=== PATIENT | male | born 1950 | race Caucasian/White ===

== ENCOUNTER → 2016-05-08 | Outpatient (CLI) | payer MEDICARE | END | disposition home or self-care (01) | LOC: GMAB 14:08 | PROVIDERS: ATTEND Family Medicine | DX: Z79.899 Other long term (current) drug therapy (principal); J30.9 Allergic rhinitis, unspecified ==

== ENCOUNTER → 2016-05-26 | Outpatient (CLI) | payer MEDICARE, OTHER ==
--- NOTE | 2016-05-26 08:33 | RAD ---
EXAM DESCRIPTION: Knee,Right Complete CLINICAL HISTORY: KNEE PAIN COMPARISON: None. TECHNIQUE: 4 views FINDINGS: Marked loss of medial joint space is observed. Sclerosis of the articular surfaces are observed in the medial joint compartment. Medial femoral osteophyte formation is observed. Marked patellofemoral joint arthritis is observed. A small joint effusion is evident. Mild degenerative changes are observed in the lateral joint compartment. 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 Electronically signed by: Matt Hidalgo MD 05/26/2016 8:32 AM CDT
--- NOTE | 2016-05-26 08:34 | RAD ---
EXAM DESCRIPTION: Pelvis CLINICAL HISTORY: HIP PAIN COMPARISON: None. TECHNIQUE: AP pelvis FINDINGS: Fusion cages are observed at the L4-5 and L5-S1 levels in the lumbar spine. There is loss of disc height in the left hip. Some acetabular osteophyte formation is observed in the right hip. No fracturing is detected. Vascular calcification is observed in the pelvis. IMPRESSION: Degenerative changes are observed in both hips more pronounced on the left. Electronically signed by: Matt Hidalgo MD 05/26/2016 8:33 AM CDT
== END | disposition home or self-care (01) ==
LOC: RAD 07:59
PROVIDERS: ATTEND Orthopaedic Surgery
DX: M25.561 Pain in right knee (principal); M25.551 Pain in right hip

== ENCOUNTER → 2016-05-30 | Outpatient (CLI) | payer MEDICARE, OTHER ==
--- NOTE | 2016-05-31 06:27 | RAD ---
Procedure: XR SHOULDER 2 OR MORE VIEWS Exam Date: 05/30/2016 12:00 AM CDT Ordering Provider: JEET MCBRIDE Clinical Indication: SHOULDER PAIN Comparison: None FINDINGS: There is no fracture or dislocation. The subacromial space is preserved. The acromioclavicular joint has a normal appearance. The glenohumeral joint has a normal appearance. No lytic or sclerotic lesions. IMPRESSION: 1. Unremarkable exam of the right shoulder. Electronically signed by: Sloan Wood MD 05/31/2016 6:26 AM CDT
--- NOTE | 2016-05-31 06:38 | RAD ---
Procedure: XR SHOULDER 2 OR MORE VIEWS Exam Date: 05/30/2016 12:00 AM CDT Ordering Provider: JEET MCBRIDE Clinical Indication: SHOULDER PAIN Comparison: None FINDINGS: There is no fracture or dislocation. The subacromial space is preserved. The acromioclavicular joint has a normal appearance. The glenohumeral joint has a normal appearance. No lytic or sclerotic lesions. IMPRESSION: 1. Nonacute exam of the left shoulder. Electronically signed by: Sloan Wood MD 05/31/2016 6:37 AM CDT
== END | disposition home or self-care (01) ==
LOC: RAD 08:21
PROVIDERS: ATTEND Orthopaedic Surgery
DX: M25.512 Pain in left shoulder (principal)

== ENCOUNTER → 2017-04-22 | Outpatient (CLI) | payer MEDICARE, OTHER ==
--- NOTE | 2017-04-22 10:31 | CT ---
EXAM DESCRIPTION: Chest w/o Contrast CLINICAL HISTORY: 66 years, Male, COUGH COMPARISON: None TECHNIQUE: Thin-section noncontrast axial CT images are obtained according to our protocol. Reconstructed MPR images are created and reviewed as well. FINDINGS: Subpleural emphysematous and fibrotic changes are seen in the right lung base with linear scar in the inferior lingula and in the medial right middle lobe. In the anterior and apical upper lobes, moderately severe emphysematous changes are seen which are paraseptal and centrilobular in location. Subpleural blebs are seen in the anterior upper lobes bilaterally. No pneumothorax. No worrisome pulmonary nodule or mass. No acute-appearing consolidation of either lung. Heart size is normal. No pericardial effusion. No mediastinal or hilar mass or adenopathy. There is coronary calcification. In the upper abdomen, tiny 2 mm calculus is seen in the posterior upper calyx of the left kidney. Upper poles of kidneys, adrenal glands, upper portions of liver, spleen, gallbladder and pancreas are otherwise unremarkable. Normal appearance of the stomach and bowel loops in the upper most abdomen. No focal lesion of liver or spleen. No chest wall mass. No axillary, lower cervical or supraclavicular adenopathy. Calcifications in the thyroid gland are noted. Coronal and sagittal reformatted images are evaluated. Ascending aorta is mildly prominent measuring 3.7 cm in diameter. No significant pulmonary arterial enlargement. No aortic aneurysm or displaced arteriosclerotic calcifications to suggest dissection. IMPRESSION: Scattered emphysematous and fibrotic changes in the lungs as described. Prominent subpleural blebs in the anterior upper lobes bilaterally. This exam was performed according to our departmental dose-optimization program, which includes automated exposure control, adjustment of the mA and/or kV according to patient size and/or use of iterative reconstruction technique. Total DLP equals 375.36 mGycm. Electronically signed by: Lucio Walker MD 04/22/2017 10:31 AM [employer]
== END ==
LOC: CT 08:00
PROVIDERS: ATTEND Family Medicine
DX: R05 Cough (principal)

== ENCOUNTER 2020-01-17 16:14 | Inpatient (IN) | payer MEDICARE, OTHER ==
--- NOTE | 2020-01-17 17:43 | RAD ---
EXAM DESCRIPTION: Chest,1 View CLINICAL HISTORY: Decrease oxygen sats,COVID + COMPARISON: Chest CT dated April 22, 2017 TECHNIQUE: One view radiograph of the chest FINDINGS: Cardiac silhouette shows normal heart size. Pulmonary vascularity is within normal limits. Subtle alveolar opacities of the bilateral lower lung zones. Suspect trace right-sided pleural effusion. No pneumothorax. Postsurgical changes of reverse total shoulder arthroplasty bilaterally. IMPRESSION: Subtle alveolar opacities bilateral lower lung zones compatible with infectious/inflammatory processes such as pneumonia (including COVID 19 pneumonia). Recommend follow-up chest radiograph to resolution. Electronically signed by: Matt Molina MD 01/17/2020 5:42 PM [employer]
--- NOTE | 2020-01-17 18:44 | ED.PDOC ---
History of Present Illness - General Chief Complaint: Fever Stated Complaint: +COVID,fever,chills Time Seen by Provider: 01/17/20 17:03 Source: patient, family Exam Limitations: no limitations - History of Present Illness Initial Comments: 10 FEELING ILL, ANOREXIA X 7 D. COVID POS DX'D ON . DR. DECKER TELEHEALTHED TODAY AND SENT OVER FOR FURTHER EVALUATION. IMMUNE SUPPRESSED (ON RITUXAN, PLAQUENIL, ARAVA FOR SEVERE R.A.) THUS MORE SUSCEPTIBLE TO COVID DETERIORATION. TODAY IS WEAK, FEVERS TO 104.0, COUGH. NO SOB. Timing/Duration: getting worse Severity: moderate Improving Factors: nothing Worsening Factors: nothing Associated Symptoms: cough, fever/chills, loss of appetite, weakness Allergies/Adverse Reactions: Allergies Codeine Allergy (Verified 01/17/20 20:39) Latex Allergy (Verified 01/17/20 20:39) Morphine Allergy (Verified 01/17/20 20:39) Home Medications: Ambulatory Orders BuPROPion XL [Wellbutrin XL] 150 mg PO DAILY 01/17/20 Diazepam [Valium] 10 mg PO Q6H 01/17/20 Docusate Sodium [Colace Cap] 100 mg PO Q6HR 01/17/20 Finasteride 5 mg PO DAILY 01/17/20 HYDROcodone 10MG/APAP 325MG [[place] 10/325] 1 ea PO Q6H 01/17/20 Hydroxychloroquine Sulfate [Plaquenil] 200 mg PO BID 01/17/20 Leflunomide [Arava] 20 mg PO DAILY 01/17/20 Lisinopril 40 mg PO DAILY 01/17/20 Methadone HCl [Methadone] 10 mg PO Q6H 01/17/20 Methylphenidate HCl [Ritalin] 20 mg PO BID 01/17/20 Rituxan Hycela 1400-87105 mg -Ut/11.7ML .[id number] 01/17/20 Review of Systems - Review of Systems Constitutional: States: chills, fever, malaise, weakness EENTM: Denies: ear pain, nose congestion, throat pain Respiratory: States: cough. Denies: short of breath, wheezing Cardiology: Denies: chest pain, palpitations Gastrointestinal/Abdominal: Denies: abdominal pain, nausea Genitourinary: Denies: dysuria, frequency Musculoskeletal: States: joint pain - R.A. . Denies: neck pain Skin: Denies: lesions, rash Neurological: Denies: headache, paresthesia Endocrine: Denies: intolerance to cold, intolerance to heat Hematologic/Lymphatic: Denies: easy bleeding, easy bruising All other Systems: Reviewed and Negative Past Medical History (General) - Patient Medical History Hx Stroke: No Hx Congestive Heart Failure: No Hx Diabetes: No - Vaccination History Hx Influenza Vaccination: No Hx Pneumococcal Vaccination: No - Social History Hx Tobacco Use: No Family Medical History - Family History Father Family History: Unknown Living Status: Unknown Mother Family History: Unknown Living Status: Physical Exam - Physical Exam General Appearance: Alert, Ill Appearing Eye Exam: bilateral normal Ears, Nose, Throat: hearing grossly normal, normal ENT inspection Neck: non-tender, full range of motion, supple Respiratory: lungs clear, normal breath sounds, no respiratory distress, no accessory muscle use Cardiovascular/Chest: no edema, no gallop, no JVD, no murmur, tachycardia - REG RHYTHM. Peripheral Pulses: radial,right: 1+, radial,left: 1+ Gastrointestinal/Abdominal: non tender, soft Rectal Exam: deferred Back Exam: no CVA tenderness, no vertebral tenderness Extremity: normal range of motion, normal inspection Neurologic: no motor/sensory deficits, alert, oriented x 3 Skin Exam: normal color, warm/dry Lymphatic: no adenopathy Progress - Results/Orders Results/Orders: COVID POS PER O/S LAB. CXR AND CHEST CT = COVID PNE (BL OPACITIES) CBC WBC NL. CMP NA 133, K+ 3.3 = STARTED IVF NS W/ 20 KCl. ELEVATED COVID MARKERS: CRP, LDH, FIBRINOGEN, FERERITIN, D-DIMER (CAME BACK 5,[address] CHEST W/ CONTRAST OBTAINED, THUS I CANNOT ORDER CT TO R/O PE TONIGHT. IT CAN BE ORDERED TOMORROW.) LABS UNREMARKABLE OR WNL: MAG, CPK, PTT, TROP, BNP. ADMISSION LABS ORDERED BUT STILL PENDING UPON ADMISSION: BCX, SPUTUM CX, RESP 2 PANEL. ORDERED ROCEPHIN, AZITHROMYCIN, REMDESIVIR, DECADRON. ADMITTING FOR COVID, HYPOXIA REQUIRING 02 THERAPY (86% RA, 92% 2L NC), AND ON IMMUNE SUPPRESSANTS FOR R.A. [facility] ROSALES ACCEPTED ADMISSION. THANK YOU, [facility] AND [facility], FOR ACCEPTING FURTHER CARE OF OUR MUTUAL PATIENT. Departure - Departure Clinical Impression: Pneumonia due to COVID-19 virus, Hypoxia, Hyponatremia, Hypokalemia, Elevated LDH, CRP elevated, D-dimer, elevated, Elevated ferritin Disposition: Admit Patient Condition: Good Home Medications: Ambulatory Orders BuPROPion XL [Wellbutrin XL] 150 mg PO DAILY 01/17/20 Diazepam [Valium] 10 mg PO Q6H 01/17/20 Docusate Sodium [Colace Cap] 100 mg PO Q6HR 01/17/20 Finasteride 5 mg PO DAILY 01/17/20 HYDROcodone 10MG/APAP 325MG [[place] 10325] 1 ea PO Q6H 01/17/20 Hydroxychloroquine Sulfate [Plaquenil] 200 mg PO BID 01/17/20 Leflunomide [Arava] 20 mg PO DAILY 01/17/20 Lisinopril 40 mg PO DAILY 01/17/20 Methadone HCl [Methadone] 10 mg PO Q6H 01/17/20 Methylphenidate HCl [Ritalin] 20 mg PO BID 01/17/20 Rituxan Hycela 1400-54572 mg -Ut/11.7ML .[id number] 01/17/20 Decision To Admit - Decistion To Admit Decision to Admit Reason: Admit from ER Decision to Admit Date: 01/17/20 Decision to Admit Time: 21:30
[2020-01-17] MEDS ORDERED: cefTRIAXone SODIUM 1 GM VIAL IM ONE (18:46)
[2020-01-17] MEDS ORDERED: AZITHROMYCIN IV 500 MG in SODIUM CHLORIDE 0.9% 250ML 250 ML IVPB ONE (18:46)
[2020-01-17] MEDS ORDERED: DEXAMETHASONE INJ 10 MG/ML VIAL IV ONE (18:47)
[2020-01-17] MEDS ORDERED: REMDESIVIR 200 MG in SODIUM CHLORIDE 0.9% 250ML 250 ML IVPB ONE (18:47)
[2020-01-17] MEDS ORDERED: LIDOCAINE 1% 2 ML VIAL INJ ONE (18:53)
--- NOTE | 2020-01-17 19:39 | CT ---
CT CHEST WITH IV CONTRAST HISTORY: Covid, Hypoxia, Cough.. COMPARISON: 04/22/2017 TECHNIQUE: CT scan of the chest was performed with IV contrast. This exam was performed according to our departmental dose-optimization program, which includes automated exposure control, adjustment of the mA and/or kV according to patient size and/or use of iterative reconstruction technique. FINDINGS: There are multiple patchy groundglass opacities scattered throughout both lungs in a predominantly peripheral distribution. No pleural effusions or pneumothorax. There are scattered emphysematous changes in both lungs. The heart size is normal without pericardial effusion. There is mild bilateral hilar adenopathy and small mediastinal lymph nodes, likely reactive. The visualized portions of the upper abdomen are unremarkable. There are bilateral shoulder arthroplasties. IMPRESSION: Commonly reported imaging features of COVID-19 pneumonia are present. Other processes such as influenza pneumonia and organizing pneumonia, as can be seen with drug toxicity and connective tissue disease, can cause a similar imaging pattern. [PneTyp] Reference: https://pubs.rsna.org/doi/full/10.1148/ryct.6502787060 Electronically signed by: Anselmo Matta MD 01/17/2020 7:38 PM [employer] INSPECTOR REPAIRER
[2020-01-17] MEDS ORDERED: SODIUM CHLORIDE 0.9% (FLUSH) 10 ML SYG IV PRN (20:04)
[2020-01-17] MEDS ORDERED: POTASSIUM CHLORIDE 20 MEQ TAB PO ONE (20:13)
--- NOTE | 2020-01-17 20:24 | HP ---
SUPERVISING PHYSICIAN: Dru Garcia MD CHIEF COMPLAINT: Fever. HISTORY OF PRESENT ILLNESS: This is a 69-year-old male patient who was diagnosed with COVID pneumonitis as an outpatient and then he was noted to be hypoxic and was sent to the Emergency Room. He was evaluated in the ER with O2 saturation of 86% on room air. He was placed on 2 liters via nasal cannula and his O2 saturation increased to 94%. He is alert and oriented, in no distress, but hypoxic. He noted fever and chills associated with COVID as well. Lab work was done in the ER and showed white count 6.8, hemoglobin 11.5, but he did have a left shift of 92.5. D-dimer was greater than 5,000. CRP was 13.3. Sodium 133, potassium 3.3. Transaminases were mildly elevated, AST 90, ALT 88. Chest x-ray as well as CT of the chest showed bilateral patchy infiltrates consistent with COVID pneumonitis. Due to the hypoxia, the patient was referred for admission. At time of examination, the patient is alert and oriented and in no distress. PAST MEDICAL HISTORY: 1. Hypertension. 2. Chronic pain syndrome. 3. Rheumatoid arthritis. PAST SURGICAL HISTORY: 1. Extensive back surgery. 2. Knee surgeries. MEDICATIONS: Please see medication reconciliation list once verified in the computer. ALLERGIES: CODEINE, LATEX, MORPHINE. FAMILY HISTORY: Reviewed and noncontributory. SOCIAL HISTORY: No smoking, no illicit drugs. He does drink beer on occasion. REVIEW OF SYSTEMS: CONSTITUTIONAL: Positive for fever and chills. No recent weight loss or weight gain. HEENT: Positive for nasal drainage. No sore throat. RESPIRATORY: Positive for shortness of breath with exertion. Positive for cough. No hemoptysis or pleuritic chest pain. CARDIOVASCULAR: No chest pain, palpitations or peripheral edema. GASTROINTESTINAL: No nausea, vomiting, diarrhea, constipation or abdominal pain. GENITOURINARY: No dysuria, frequency or flank pain. ENDOCRINE: No polydipsia, polyuria or polyphagia. No heat or cold intolerance. MUSCULOSKELETAL: No joint pain, joint swelling or muscle cramps. NEUROLOGIC: No syncope, paresthesias or seizures. PHYSICAL EXAMINATION: VITAL SIGNS: Blood pressure 129/74, heart rate 98, respiratory rate 1,8 temperature 98.8, oxygen saturation 93% on 3 liters via nasal cannula. GENERAL: Mr. Hdez is a 69-year-old male patient who is in no active distress. NEUROLOGIC: The patient is alert. LUNGS: Diminished with bibasilar rales. No wheezing. CARDIOVASCULAR: Regular rate and rhythm. Normal S1, S2. ABDOMEN: Soft. Positive bowel sounds. EXTREMITIES: Right lower extremity with no edema. Pulses 2+. Capillary refill is less than 2 seconds. Left [id number]-kvgl-twejosinkn noted. LABORATORY: Labs and films are as discussed in history of present illness. IMPRESSION: 1. Acute hypoxemic respiratory failure. 2. COVID pneumonitis. 3. Hypertension. 4. Chronic pain syndrome. 5. History of rheumatoid arthritis on immunosuppressant medication. PLAN: The patient will be admitted to the hospital with empiric antibiotics with Rocephin and azithromycin as well as dexamethasone and Remdesivir. I have placed him on scheduled bronchodilator therapy as well as Mucinex. We will repeat serial labs and x-rays as needed. We will restart his home medications once verified in the computer. [facility][id number] [facility]
[2020-01-17] MEDS ORDERED: ENOXAPARIN SODIUM 60 MG/0.6 ML SYG SUBCU ONE (22:09)
[2020-01-17] MEDS ORDERED: diazePAM 5 MG TAB ONE (22:09)
[2020-01-17] MEDS: NON-FORMULARY MEDICATION 1 EA MIS (Diazepam [Valium] 10 MG) PO SCH (22:13)
[2020-01-17] MEDS: guaiFENesin ER TAB 600 MG TAB PO SCH (22:13)
[2020-01-17] MEDS: HYDROcodone 10MG/APAP 325MG 1 EA TAB PO SCH (22:14)
[2020-01-17] MEDS: METHADONE HCL 10 MG TAB PO SCH (22:14)
[2020-01-17] MEDS: IV SET AND CAP CHANGE INJ INJ SCH (22:15)
[2020-01-17] MEDS: KCL 20 MEQ/NS 1,000 ML IVS PRN (22:16)
[2020-01-17] MEDS ORDERED: DOCUSATE SODIUM 100 MG CAP PO SCH (22:50)
[2020-01-17] MEDS: NON-FORMULARY MEDICATION 1 EA MIS (Hydroxychloroquine Sulfate [Plaquenil] 200 MG) PO SCH (22:51)
[2020-01-18] MEDS ORDERED: DOCUSATE SODIUM 100 MG CAP PO SCH
[2020-01-18] MEDS ORDERED: diazePAM 5 MG TAB ONE ×2 (03:07→08:56)
[2020-01-18] MEDS: DOCUSATE SODIUM 100 MG CAP PO SCH ×4 (03:51→21:10)
[2020-01-18] MEDS: NON-FORMULARY MEDICATION 1 EA MIS (Diazepam [Valium] 10 MG) PO SCH ×2 (03:59→09:11)
[2020-01-18] MEDS: HYDROcodone 10MG/APAP 325MG 1 EA TAB PO SCH ×4 (04:00→21:14)
[2020-01-18] MEDS: METHADONE HCL 10 MG TAB PO SCH ×4 (04:00→21:14)
[2020-01-18] MEDS: KCL 20 MEQ/NS 1,000 ML IVS PRN (06:14)
[2020-01-18] MEDS ORDERED: DEXAMETHASONE INJ 10 MG/ML VIAL ONE (08:00)
[2020-01-18] MEDS ORDERED: ENOXAPARIN SODIUM 60 MG/0.6 ML SYG SUBCU ONE ×2 (08:00→19:25)
[2020-01-18] MEDS ORDERED: LISINOPRIL 10 MG TAB ONE (08:01)
[2020-01-18] MEDS: LISINOPRIL 10 MG TAB PO SCH (09:05)
[2020-01-18] MEDS: guaiFENesin ER TAB 600 MG TAB PO SCH ×2 (09:05→21:14)
[2020-01-18] MEDS: Wellbutrin XL 150 MG TAB PO SCH (09:05)
[2020-01-18] MEDS: FINASTERIDE 5 MG TAB PO SCH (09:05)
[2020-01-18] MEDS: DEXAMETHASONE INJ 4 MG/ML VIAL IV SCH ×2 (09:09→21:10)
[2020-01-18] MEDS: ALBUTEROL INHALER 64 PUFF/8GM INH SCH ×4 (09:15→20:50)
--- NOTE | 2020-01-18 10:58 | PN ---
SUPERVISING PHYSICIAN: Dru Garcia MD DATE: 01/18/20 SUBJECTIVE: The patient feels fine today. He does not complain of any shortness of breath or cough. He actually states he wants to go home. OBJECTIVE: VITAL SIGNS: Blood pressure 134/75, heart rate 69, respiratory rate 18, temperature 98.4, oxygen saturation 93% on 3 liters via nasal cannula. GENERAL: Mr. Hagen is a 69-year-old male patient who is in no active distress. NEUROLOGIC: The patient is alert. LUNGS: Diminished, but otherwise clear. CARDIOVASCULAR: Regular rate and rhythm. Normal S1, S2. ABDOMEN: Soft. Positive bowel sounds. EXTREMITIES: Lower extremities with no edema on the right, left [id number]. LABORATORY: White count 4.0, hemoglobin 11.1, platelet count 373. Coagulation studies with D-dimer 3280. Chemistry with sodium 141, potassium 5.1, chloride 104, CO2 28, BUN 13, creatinine 0.60, glucose 135, calcium 7.4. AST improved to 76 and ALT improved to 81. CRP 13.8. ASSESSMENT: 1. Acute hypoxemic respiratory failure. 2. COVID pneumonitis. 3. Hypertension. 4. Chronic pain syndrome. 5. History of rheumatoid arthritis on immunosuppressive medication. PLAN: The patient is in no distress, tolerating 3 liters of oxygen fairly well. He has not required an increase in oxygen supply at this time. We will continue Remdesivir, dexamethasone as well as empiric antibiotics. We will continue the bronchodilator and Mucinex as well. I will repeat his labs and chest x-ray tomorrow. He does want to go home, but at this point requiring oxygen I would encourage him to stay for further therapy. [facility][id number] [facility]
[2020-01-18] MEDS: NON-FORMULARY MEDICATION 1 EA MIS (Leflunomide [Arava] 20 MG) PO SCH (12:14)
[2020-01-18] MEDS: NON-FORMULARY MEDICATION 1 EA MIS (Hydroxychloroquine Sulfate [Plaquenil] 200 MG) PO SCH ×2 (14:49→21:12)
[2020-01-18] MEDS: METHYLPHENIDATE HCL 20 MG PO SCH ×2 (14:49→21:13)
[2020-01-18] MEDS: diazePAM 5 MG TAB PO SCH ×2 (14:50→21:14)
[2020-01-18] MEDS: REMDESIVIR 100 MG in SODIUM CHLORIDE 0.9% 250ML 250 ML IVPB SCH (17:31)
[2020-01-18] MEDS ORDERED: AZITHROMYCIN IV 500 MG VIAL IVPB ONE (19:25)
[2020-01-18] MEDS ORDERED: SODIUM CHLORIDE 0.9% 250ML 250 ML ONE (19:25)
[2020-01-18] MEDS: cefTRIAXone SODIUM 1 GM in SODIUM CHL 0.9% 50ML MIN-BAG+ 50 ML IVPB SCH (19:54)
[2020-01-18] MEDS: AZITHROMYCIN IV 500 MG in SODIUM CHLORIDE 0.9% 250ML 250 ML IVPB SCH (20:30)
[2020-01-19] MEDS: DOCUSATE SODIUM 100 MG CAP PO SCH ×4 (03:05→20:19)
[2020-01-19] MEDS: diazePAM 5 MG TAB PO SCH ×4 (03:05→20:20)
[2020-01-19] MEDS: METHADONE HCL 10 MG TAB PO SCH ×4 (03:05→21:23)
[2020-01-19] MEDS: HYDROcodone 10MG/APAP 325MG 1 EA TAB PO SCH ×4 (03:06→21:23)
[2020-01-19] MEDS: REMDESIVIR 100 MG in SODIUM CHLORIDE 0.9% 250ML 250 ML IVPB SCH (07:59)
--- NOTE | 2020-01-19 07:59 | RAD ---
EXAM: XR Chest, 1 View CLINICAL HISTORY: The patient is 69 years old and is Male; covid-19 TECHNIQUE: Frontal view of the chest. COMPARISON: Chest x-ray 01/17/2020. FINDINGS: Lungs: Diffuse patchy airspace disease in the mid to lower lungs bilaterally. Pleural space: Blunting of the right costophrenic angle which can represent pleural effusion. No pneumothorax. Heart: Unremarkable. No cardiomegaly. Mediastinum: Unremarkable. Bones/joints: Unremarkable. IMPRESSION: 1. Diffuse patchy airspace disease in the mid to lower lungs bilaterally. 2. Blunting of the right costophrenic angle which can represent pleural effusion. Electronically signed by: Mark Qureshi MD 01/19/2020 7:58 AM [employer]ILRO[employer] MAINTENANCE CLERK
[2020-01-19] MEDS: guaiFENesin ER TAB 600 MG TAB PO SCH ×2 (08:01→20:19)
[2020-01-19] MEDS: FINASTERIDE 5 MG TAB PO SCH (08:01)
[2020-01-19] MEDS: Wellbutrin XL 150 MG TAB PO SCH (08:02)
[2020-01-19] MEDS: LISINOPRIL 10 MG TAB PO SCH (08:02)
[2020-01-19] MEDS: DEXAMETHASONE INJ 4 MG/ML VIAL IV SCH (08:03)
[2020-01-19] MEDS: NON-FORMULARY MEDICATION 1 EA MIS (Hydroxychloroquine Sulfate [Plaquenil] 200 MG) PO SCH ×2 (08:06→20:20)
[2020-01-19] MEDS: METHYLPHENIDATE HCL 20 MG PO SCH ×2 (08:06→20:20)
[2020-01-19] MEDS: NON-FORMULARY MEDICATION 1 EA MIS (Leflunomide [Arava] 20 MG) PO SCH (08:08)
[2020-01-19] MEDS ORDERED: ENOXAPARIN SODIUM 60 MG/0.6 ML SYG SUBCU ONE (08:09)
[2020-01-19] MEDS: ALBUTEROL INHALER 64 PUFF/8GM INH SCH ×4 (08:20→21:00)
[2020-01-19] MEDS ORDERED: ALBUTEROL INHALER 64 PUFF/8GM INH PRN (15:59)
[2020-01-19] MEDS: cefTRIAXone SODIUM 1 GM in SODIUM CHL 0.9% 50ML MIN-BAG+ 50 ML IVPB SCH (19:27)
[2020-01-19] MEDS: AZITHROMYCIN IV 500 MG in SODIUM CHLORIDE 0.9% 250ML 250 ML IVPB SCH (20:14)
[2020-01-19] MEDS: ENOXAPARIN SODIUM 60 MG/0.6 ML SYG SUBCU SCH (20:21)
[2020-01-19] MEDS: DEXAMETHASONE INJ 10 MG/ML VIAL IV SCH (20:21)
[2020-01-20] MEDS: HYDROcodone 10MG/APAP 325MG 1 EA TAB PO SCH ×4 (03:03→21:02)
[2020-01-20] MEDS: METHADONE HCL 10 MG TAB PO SCH ×4 (03:03→21:02)
[2020-01-20] MEDS: DOCUSATE SODIUM 100 MG CAP PO SCH ×4 (03:03→20:32)
[2020-01-20] MEDS: diazePAM 5 MG TAB PO SCH ×4 (03:04→20:32)
[2020-01-20] MEDS: PANTOPRAZOLE SODIUM TAB 40 MG PO SCH (05:54)
--- NOTE | 2020-01-20 06:26 | RAD ---
EXAM: XR Chest, 1 View CLINICAL HISTORY: The patient is 69 years old and is Male; covid TECHNIQUE: Frontal view of the chest. COMPARISON: Chest x-ray 01/19/2020 FINDINGS: Lungs: Diffuse patchy airspace disease in the mid to lower lungs bilaterally, similar to the prior exam. Pleural space: Blunting of the right costophrenic angle again suggestive of a pleural effusion. No pneumothorax. Heart: Unremarkable. No cardiomegaly. Mediastinum: Unremarkable. Bones/joints: Bilateral shoulder arthroplasty. IMPRESSION: 1. Diffuse patchy airspace disease in the mid to lower lungs bilaterally, similar to the prior exam. 2. Similar-appearing right pleural effusion. Electronically signed by: Mark Qureshi MD 01/20/2020 6:24 AM [employer]
[2020-01-20] MEDS ORDERED: PANTOPRAZOLE SODIUM IV 40 MG VIAL IV SCH (06:30)
[2020-01-20] MEDS ORDERED: BIFIDOBACTERIUM INFANTIS 4 MG CAP ONE (06:58)
[2020-01-20] MEDS: Wellbutrin XL 150 MG TAB PO SCH (08:09)
[2020-01-20] MEDS: REMDESIVIR 100 MG in SODIUM CHLORIDE 0.9% 250ML 250 ML IVPB SCH (08:09)
[2020-01-20] MEDS: DEXAMETHASONE INJ 10 MG/ML VIAL IV SCH ×2 (08:09→20:31)
[2020-01-20] MEDS: ENOXAPARIN SODIUM 60 MG/0.6 ML SYG SUBCU SCH ×2 (08:09→20:31)
[2020-01-20] MEDS: BIFIDOBACTERIUM INFANTIS 4 MG CAP PO SCH (08:10)
[2020-01-20] MEDS: NON-FORMULARY MEDICATION 1 EA MIS (Leflunomide [Arava] 20 MG) PO SCH (08:10)
[2020-01-20] MEDS: LISINOPRIL 10 MG TAB PO SCH (08:10)
[2020-01-20] MEDS: FINASTERIDE 5 MG TAB PO SCH (08:10)
[2020-01-20] MEDS: NON-FORMULARY MEDICATION 1 EA MIS (Hydroxychloroquine Sulfate [Plaquenil] 200 MG) PO SCH ×2 (08:10→20:31)
--- NOTE | 2020-01-20 08:10 | PN ---
SUPERVISING PHYSICIAN: Dru Garcia MD DATE: 01/19/20 SUBJECTIVE: The patient is sitting up in bed. He is still requiring oxygen and is unable to go without a lower setting. He would like to go home, but we had a long discussion about relapsing and coming back to the hospital. He denies chest pain, nausea or vomiting. OBJECTIVE: VITAL SIGNS: Temperature 97.7, heart rate 100, blood pressure 143/79, respiratory rate 18, O2 saturation 92% on 2.5 liters nasal cannula. RESPIRATORY: A few scattered rhonchi, but otherwise clear to auscultation. CARDIAC: Regular rate and rhythm. At times, he is slightly tachycardic. NEUROLOGIC: Awake, alert and oriented times three. LABORATORY: WBCs 8,700, hemoglobin 11, hematocrit 33.4. He has a left shift on his differential. D-dimer 2,660. Electrolytes are basically within normal limits with the exception of his calcium is slightly low at 7.5. AST 71, ALT 77. CRP 7.8. MICROBIOLOGY: Preliminary blood cultures show no growth after 48 hours. RADIOLOGY: Chest x-ray shows 1) Diffuse patchy airspace disease in the mid to lower lungs bilaterally. 2) Blunting of the right costophrenic angle which can represent pleural effusion. All other labs and films have been reviewed via the EMR. ASSESSMENT: 1. Acute hypoxemic respiratory failure. 2. COVID pneumonitis. 3. Hypertension. 4. Chronic pain syndrome. 5. History of rheumatoid arthritis on immunosuppressive medication. PLAN: We will continue present supportive care including continuing to titrate off his oxygen. If his lab continues to improve, hopefully he can be discharged tomorrow although he may have to go home on home oxygen. I have ordered lab and chest x-ray tomorrow and added Protonix and Align to his medications. [facility][id number] [facility]
[2020-01-20] MEDS: guaiFENesin ER TAB 600 MG TAB PO SCH ×2 (08:11→20:32)
[2020-01-20] MEDS: ALBUTEROL INHALER 64 PUFF/8GM INH SCH ×2 (08:33→15:14)
[2020-01-20] MEDS: METHYLPHENIDATE HCL 20 MG PO SCH ×2 (08:34→20:30)
[2020-01-20] MEDS ORDERED: ALBUTEROL SULFATE 2.5 MG/3 ML VIAL NEB PRN (14:23)
[2020-01-20] MEDS: IPRATROPIUM/ALBUTEROL 3 ML VIAL NEB SCH ×2 (17:30→20:55)
--- NOTE | 2020-01-20 19:06 | PN ---
SUPERVISING PHYSICIAN: Dru Garcia MD DATE: 01/20/20 SUBJECTIVE: The patient is sitting up in bed. We discussed his plan of care and discharge. He voiced understanding after we discussed his increasing oxygen demand and that it would not be safe for him to go home. He denies nausea or vomiting or chest pain. OBJECTIVE: VITAL SIGNS: Temperature 97.4, heart rate 82, blood pressure 133/68, respiratory rate 22, O2 saturation 92% on 5 to 6 liters per minute nasal cannula. RESPIRATORY: Diminished breath sounds throughout. CARDIAC: Regular rate and rhythm. NEUROLOGIC: Awake, alert and oriented times three. LABORATORY: WBCs 9.7, hemoglobin 10.9, hematocrit 33.1. He has a left shift on his differential. Fibrinogen is 578. D-dimer 1,770. Electrolytes are basically within normal limits with the exception of his calcium is low at 7. AST 69, ALT 81, alkaline phosphatase 128. LD is 335. C-reactive protein is 6. MICROBIOLOGY: Preliminary blood cultures show no growth after 48 hours. RADIOLOGY: Chest x-ray shows 1) Diffuse patchy airspace disease in the mid to lower lungs bilaterally similar to the prior exam. 2) Similar appearing right pleural effusion. ASSESSMENT: 1. Acute hypoxemic respiratory failure. 2. COVID pneumonitis. 3. Hypertension. 4. Chronic pain syndrome. 5. History of rheumatoid arthritis on immunosuppressive medication. PLAN: We will continue present supportive care. The patient understands that his oxygen demand is increasing and that it would be unsafe to go home. He may have to go on high flow oxygen if he continues to have low saturations. I have changed his albuterol inhaler to Duoneb, scheduled and albuterol nebs p.r.n.. Encouraged good pulmonary hygiene. I have ordered routine Covid lab for in the morning. I will hold on chest x-ray for now. [facility][id number] [facility]
[2020-01-20] MEDS: cefTRIAXone SODIUM 1 GM in SODIUM CHL 0.9% 50ML MIN-BAG+ 50 ML IVPB SCH (19:39)
[2020-01-20] MEDS: AZITHROMYCIN IV 500 MG in SODIUM CHLORIDE 0.9% 250ML 250 ML IVPB SCH (20:33)
[2020-01-20] MEDS: IV SET AND CAP CHANGE INJ INJ SCH (20:43)
[2020-01-21] MEDS: DOCUSATE SODIUM 100 MG CAP PO SCH ×4 (02:58→20:06)
[2020-01-21] MEDS: diazePAM 5 MG TAB PO SCH ×4 (02:58→20:06)
[2020-01-21] MEDS: METHADONE HCL 10 MG TAB PO SCH ×4 (02:58→21:28)
[2020-01-21] MEDS: HYDROcodone 10MG/APAP 325MG 1 EA TAB PO SCH ×4 (02:58→21:27)
[2020-01-21] MEDS: PANTOPRAZOLE SODIUM TAB 40 MG PO SCH (06:09)
[2020-01-21] MEDS: FINASTERIDE 5 MG TAB PO SCH (09:14)
[2020-01-21] MEDS: Wellbutrin XL 150 MG TAB PO SCH (09:14)
[2020-01-21] MEDS: DEXAMETHASONE INJ 10 MG/ML VIAL IV SCH ×2 (09:15→20:05)
[2020-01-21] MEDS: BIFIDOBACTERIUM INFANTIS 4 MG CAP PO SCH (09:15)
[2020-01-21] MEDS: LISINOPRIL 10 MG TAB PO SCH (09:15)
[2020-01-21] MEDS: guaiFENesin ER TAB 600 MG TAB PO SCH ×2 (09:16→20:07)
[2020-01-21] MEDS: REMDESIVIR 100 MG in SODIUM CHLORIDE 0.9% 250ML 250 ML IVPB SCH (09:16)
[2020-01-21] MEDS: NON-FORMULARY MEDICATION 1 EA MIS (Hydroxychloroquine Sulfate [Plaquenil] 200 MG) PO SCH ×2 (09:16→20:04)
[2020-01-21] MEDS: METHYLPHENIDATE HCL 20 MG PO SCH ×2 (09:16→20:05)
[2020-01-21] MEDS: ENOXAPARIN SODIUM 60 MG/0.6 ML SYG SUBCU SCH ×2 (09:16→20:05)
[2020-01-21] MEDS: NON-FORMULARY MEDICATION 1 EA MIS (Leflunomide [Arava] 20 MG) PO SCH (09:17)
[2020-01-21] MEDS: IPRATROPIUM/ALBUTEROL 3 ML VIAL NEB SCH ×4 (09:48→21:05)
[2020-01-21] MEDS: cefTRIAXone SODIUM 1 GM in SODIUM CHL 0.9% 50ML MIN-BAG+ 50 ML IVPB SCH (19:13)
[2020-01-21] MEDS: AZITHROMYCIN IV 500 MG in SODIUM CHLORIDE 0.9% 250ML 250 ML IVPB SCH (20:04)
[2020-01-22] MEDS: diazePAM 5 MG TAB PO SCH ×4 (03:02→20:16)
[2020-01-22] MEDS: METHADONE HCL 10 MG TAB PO SCH ×4 (03:03→21:18)
[2020-01-22] MEDS: HYDROcodone 10MG/APAP 325MG 1 EA TAB PO SCH ×4 (03:03→21:18)
[2020-01-22] MEDS: DOCUSATE SODIUM 100 MG CAP PO SCH ×4 (03:03→20:17)
[2020-01-22] MEDS: PANTOPRAZOLE SODIUM TAB 40 MG PO SCH (06:05)
--- NOTE | 2020-01-22 09:12 | PN ---
SUPERVISING PHYSICIAN: Dru Garcia MD DATE: 01/21/20 SUBJECTIVE: The patient seems to be doing okay other than the fact he is requiring still up to 12 liters high flow nasal cannula. I did discuss at length with him his treatment course once he is able to titrate down on his oxygen, certainly we can be able to send him home. At this point, he is still high risk for failure because he is still requiring well over 10 liters. He has not had any chest pain, nausea, vomiting, diarrhea. OBJECTIVE: VITAL SIGNS: Temperature 98.5, pulse 72, blood pressure 150/82, respirations 20, oxygen saturation 93 to 96% anywhere from 8 to 12 liters at rest. GENERAL: The patient is sitting on the edge of his bed and looks to be in no distress. He is alert. CHEST: Lung sounds are significantly diminished throughout. CARDIAC: Regular rate and rhythm. ABDOMEN: Soft, non-tender, positive bowel sounds. EXTREMITIES: No edema. NEUROLOGIC: Alert and oriented times three. LABORATORY: White count showing to be stable at 9,700, hemoglobin 10.4, hematocrit 31.5. RBC indices would indicate a microcytic hypochromic presentation with platelet count of 423,000. Differential does show a left shift. Coagulation studies show D-dimer is trending down to 1630 compared to 5,000 on admission. Chemistries showing normal electrolytes. Creatinine is at 0.69. Liver functions are showing elevation at 95 on AST, ALT at 116. Alkaline phosphatase 125, C-reactive protein down to 7 from 13.8 on admission. MICROBIOLOGY: Blood cultures remain negative after 4 days. RADIOLOGY: No additional radiographic studies. ASSESSMENT: 1. COVID pneumonitis. 2. Acute hypoxemic respiratory failure secondary to #1. 3. Hypertension. 4. Chronic pain syndrome. 5. History of rheumatoid arthritis on immunosuppressive medication. PLAN: We will continue current plan of care to work his oxygen down so he will be safe to go home on low-flow oxygen and not show any distress. We will have to get an ambulation study at some point once he gets down at least below 6, I would suggest. He does remain on albuterol inhalers and we are working with him to continue with aggressive pulmonary hygiene. We will follow his labs and chest x-ray until we can transition him to outpatient management. Until then, we will continue to monitor and treat as needed. [facility][id number] [facility]
[2020-01-22] MEDS: FINASTERIDE 5 MG TAB PO SCH (09:45)
[2020-01-22] MEDS: LISINOPRIL 10 MG TAB PO SCH (09:45)
[2020-01-22] MEDS: BIFIDOBACTERIUM INFANTIS 4 MG CAP PO SCH (09:45)
[2020-01-22] MEDS: Wellbutrin XL 150 MG TAB PO SCH (09:45)
[2020-01-22] MEDS: guaiFENesin ER TAB 600 MG TAB PO SCH ×2 (09:45→20:16)
[2020-01-22] MEDS: METHYLPHENIDATE HCL 20 MG PO SCH ×2 (09:46→20:15)
[2020-01-22] MEDS: ENOXAPARIN SODIUM 60 MG/0.6 ML SYG SUBCU SCH ×2 (09:46→20:16)
[2020-01-22] MEDS: DEXAMETHASONE INJ 10 MG/ML VIAL IV SCH ×2 (09:46→20:18)
[2020-01-22] MEDS: NON-FORMULARY MEDICATION 1 EA MIS (Leflunomide [Arava] 20 MG) PO SCH (09:46)
[2020-01-22] MEDS: NON-FORMULARY MEDICATION 1 EA MIS (Hydroxychloroquine Sulfate [Plaquenil] 200 MG) PO SCH ×2 (09:46→20:15)
[2020-01-22] MEDS: IPRATROPIUM/ALBUTEROL 3 ML VIAL NEB SCH ×4 (10:15→21:12)
[2020-01-22] MEDS ORDERED: IPRATROPIUM/ALBUTEROL 3 ML VIAL NEB ONE (13:25)
--- NOTE | 2020-01-22 19:08 | PN ---
SUPERVISING PHYSICIAN: Dru Garcia MD DATE: 01/22/20 SUBJECTIVE: The patient is doing well, still requiring high flow oxygen but he is down to at least 7 liters at this point. He is still anxious to go home but understands he can't go home until he gets down better on his FI02 requirements. OBJECTIVE: VITAL SIGNS: Temperature 97.4, pulse 74, blood pressure 146/79, respirations 18, oxygen saturation 92% on 7 liters high flow nasal cannula. GENERAL: The patient is sitting on the edge of his bed and looks to be in no distress. He is alert. CHEST: Lung sounds are significantly diminished throughout. CARDIAC: Regular rate and rhythm. ABDOMEN: Soft, non-tender, positive bowel sounds. EXTREMITIES: No edema. NEUROLOGIC: Alert and oriented times three. LABORATORY: No additional laboratory studies today. Follow labs as needed. ASSESSMENT: 1. COVID pneumonitis. 2. Acute hypoxemic respiratory failure secondary to #1. 3. Hypertension. 4. Chronic pain syndrome. 5. History of rheumatoid arthritis on immunosuppressive medication. PLAN: We will continue to titrate him down on his oxygen as we are able to. I anticipate hopefully he will discharge in the next 24-48 hours, hopefully tomorrow. He will need oxygen when he goes home more likely unless he is able to titrate completely down. He does not want to wear oxygen at home but he understands he can't go home until his requirements for oxygen are not quite as demanding. Until then, we will continue to monitor and treat as needed.. #[id number] [facility]
[2020-01-22] MEDS: cefTRIAXone SODIUM 1 GM in SODIUM CHL 0.9% 50ML MIN-BAG+ 50 ML IVPB SCH (19:30)
[2020-01-22] MEDS: AZITHROMYCIN IV 500 MG in SODIUM CHLORIDE 0.9% 250ML 250 ML IVPB SCH (20:13)
[2020-01-23] MEDS: HYDROcodone 10MG/APAP 325MG 1 EA TAB PO SCH ×4 (03:04→21:08)
[2020-01-23] MEDS: DOCUSATE SODIUM 100 MG CAP PO SCH ×4 (03:04→21:08)
[2020-01-23] MEDS: METHADONE HCL 10 MG TAB PO SCH ×4 (03:05→21:09)
[2020-01-23] MEDS: diazePAM 5 MG TAB PO SCH ×4 (03:05→21:09)
[2020-01-23] MEDS: PANTOPRAZOLE SODIUM TAB 40 MG PO SCH (06:09)
[2020-01-23] MEDS: IPRATROPIUM/ALBUTEROL 3 ML VIAL NEB SCH ×5 (08:19→20:10)
[2020-01-23] MEDS ORDERED: IPRATROPIUM/ALBUTEROL 3 ML VIAL NEB ONE ×2 (09:14→13:01)
[2020-01-23] MEDS: FINASTERIDE 5 MG TAB PO SCH (09:50)
[2020-01-23] MEDS: Wellbutrin XL 150 MG TAB PO SCH (09:50)
[2020-01-23] MEDS: guaiFENesin ER TAB 600 MG TAB PO SCH ×2 (09:50→21:08)
[2020-01-23] MEDS: LISINOPRIL 10 MG TAB PO SCH (09:50)
[2020-01-23] MEDS: BIFIDOBACTERIUM INFANTIS 4 MG CAP PO SCH (09:50)
[2020-01-23] MEDS: DEXAMETHASONE INJ 10 MG/ML VIAL IV SCH ×2 (09:52→21:11)
[2020-01-23] MEDS: METHYLPHENIDATE HCL 20 MG PO SCH ×2 (09:53→21:10)
[2020-01-23] MEDS: ENOXAPARIN SODIUM 60 MG/0.6 ML SYG SUBCU SCH ×2 (09:53→21:10)
[2020-01-23] MEDS: NON-FORMULARY MEDICATION 1 EA MIS (Hydroxychloroquine Sulfate [Plaquenil] 200 MG) PO SCH ×2 (09:53→21:09)
[2020-01-23] MEDS: NON-FORMULARY MEDICATION 1 EA MIS (Leflunomide [Arava] 20 MG) PO SCH (09:53)
--- NOTE | 2020-01-23 17:35 | PN ---
SUPERVISING PHYSICIAN: Zelalem Taveras MD DATE: 01/23/20 SUBJECTIVE: The patient is sitting up in bed. He really wants to go home but again, we discussed his increased oxygen requirements and that we would have to titrate him down. I discussed his plan of care and his discharge plan and that he would most likely have to go home on oxygen but it would not be possible for him to be discharged for a few days, He denies nausea or vomiting or chest pain. OBJECTIVE: VITAL SIGNS: Temperature 97.9, heart rate 97, blood pressure 113/65, respiratory rate 18, O2 saturation 95% on 5 to 6 liters nasal cannula. RESPIRATORY: Diminished at the bases. CARDIAC: Regular rate and rhythm. NEUROLOGIC: Awake, alert and oriented times three. LABORATORY/RADIOLOGY: There are no labs or films to report at this time. ASSESSMENT: 1. COVID pneumonitis. 2. Acute hypoxemic respiratory failure secondary to #1.. 3. Hypertension. 4. Chronic pain syndrome. 5. History of rheumatoid arthritis on immunosuppressive medication. PLAN: We will continue present supportive care including the Covid guidelines with the medications. Will repeat his lab and chest x-ray in the morning and continue to titrate his oxygen down as tolerated. When he gets down 2 liters nasal cannula, will need to do an ambulation study. Hopefully he can be discharged on home . #[id number] [facility]
[2020-01-23] MEDS: IV SET AND CAP CHANGE INJ INJ SCH (20:06)
[2020-01-23] MEDS: cefTRIAXone SODIUM 1 GM in SODIUM CHL 0.9% 50ML MIN-BAG+ 50 ML IVPB SCH (20:06)
[2020-01-23] MEDS: AZITHROMYCIN IV 500 MG in SODIUM CHLORIDE 0.9% 250ML 250 ML IVPB SCH (21:07)
[2020-01-24] MEDS: diazePAM 5 MG TAB PO SCH ×4 (03:19→20:27)
[2020-01-24] MEDS: METHADONE HCL 10 MG TAB PO SCH ×4 (03:19→20:27)
[2020-01-24] MEDS: DOCUSATE SODIUM 100 MG CAP PO SCH ×4 (03:19→20:27)
[2020-01-24] MEDS: HYDROcodone 10MG/APAP 325MG 1 EA TAB PO SCH ×4 (03:19→20:28)
[2020-01-24] MEDS: PANTOPRAZOLE SODIUM TAB 40 MG PO SCH (06:31)
--- NOTE | 2020-01-24 07:28 | RAD ---
EXAM: XR Chest, 1 View CLINICAL HISTORY: covid TECHNIQUE: Frontal view of the chest. COMPARISON: 01/20/2020 FINDINGS: Lungs: There is mild increased bilateral lower lung zone interstitial thickening and superimposed airspace consolidation. Pleural space: No pneumothorax or pleural effusion. Heart: Normal cardiac size and configuration. Mediastinum: No abnormality noted. Bones/joints: No osseous destruction or sclerosis noted. IMPRESSION: Worsening covid pneumonia. Electronically signed by: Josey Zarco MD 01/24/2020 7:27 AM [employer]
[2020-01-24] MEDS: IPRATROPIUM/ALBUTEROL 3 ML VIAL NEB SCH ×4 (09:00→22:20)
[2020-01-24] MEDS: ENOXAPARIN SODIUM 60 MG/0.6 ML SYG SUBCU SCH ×2 (12:07→20:27)
[2020-01-24] MEDS: LISINOPRIL 10 MG TAB PO SCH (12:08)
[2020-01-24] MEDS: guaiFENesin ER TAB 600 MG TAB PO SCH ×2 (12:08→20:27)
[2020-01-24] MEDS: DEXAMETHASONE INJ 10 MG/ML VIAL IV SCH ×2 (12:09→20:26)
[2020-01-24] MEDS: Wellbutrin XL 150 MG TAB PO SCH (12:09)
[2020-01-24] MEDS: BIFIDOBACTERIUM INFANTIS 4 MG CAP PO SCH (12:09)
[2020-01-24] MEDS: FINASTERIDE 5 MG TAB PO SCH (12:09)
[2020-01-24] MEDS: NON-FORMULARY MEDICATION 1 EA MIS (Leflunomide [Arava] 20 MG) PO SCH (12:10)
[2020-01-24] MEDS: NON-FORMULARY MEDICATION 1 EA MIS (Hydroxychloroquine Sulfate [Plaquenil] 200 MG) PO SCH ×2 (12:10→20:29)
[2020-01-24] MEDS: METHYLPHENIDATE HCL 20 MG PO SCH ×2 (12:10→20:29)
[2020-01-24] MEDS: CITALOPRAM HBR 20 MG TAB PO SCH (12:12)
[2020-01-24] MEDS ORDERED: HYDROCORT 2.5% CRM (ANUSOL HC) 30 GM TUBE PR PRN (17:34)
[2020-01-24] MEDS: cefTRIAXone SODIUM 1 GM in SODIUM CHL 0.9% 50ML MIN-BAG+ 50 ML IVPB SCH (19:11)
[2020-01-25] MEDS: METHADONE HCL 10 MG TAB PO SCH ×4 (03:11→21:22)
[2020-01-25] MEDS: HYDROcodone 10MG/APAP 325MG 1 EA TAB PO SCH ×4 (03:11→21:24)
[2020-01-25] MEDS: DOCUSATE SODIUM 100 MG CAP PO SCH ×4 (03:11→21:21)
[2020-01-25] MEDS: diazePAM 5 MG TAB PO SCH ×4 (03:11→21:23)
[2020-01-25] MEDS: PANTOPRAZOLE SODIUM TAB 40 MG PO SCH (05:48)
--- NOTE | 2020-01-25 08:39 | PN ---
SUPERVISING PHYSICIAN: Zelalem Taveras MD DATE: 01/24/20 SUBJECTIVE: The patient is sitting on the side of the bed. We discussed his low O2 saturations and high oxygen requirement. He is very depressed, but he denies any chest pain, nausea or vomiting. OBJECTIVE: VITAL SIGNS: Temperature 98.1, heart rate 81, blood pressure 126/70, respiratory rate 20, O2 saturation 92% on 5 liters nasal cannula. RESPIRATORY: Diminished breath sounds throughout. CARDIAC: Regular rate and rhythm. NEUROLOGIC: Awake, alert and oriented times three. LABORATORY: WBCs 8.8, hemoglobin 11.3, hematocrit 35. He has a left shift on his differential. Fibrinogen 735, D-dimer 1,790. Electrolytes are basically within normal limits with the exception of his calcium is low at 7.7. ALT 73, LD 251, CPK 30, C-reactive protein 3.5. RADIOLOGY: Chest x-ray shows worsening COVID pneumonia. ASSESSMENT: 1. COVID pneumonitis. 2. Acute hypoxemic respiratory failure secondary to #1. 3. Hypertension. 4. Chronic pain syndrome. 5. History of rheumatoid arthritis on immunosuppressive medication. PLAN: We will continue present supportive care including the COVID guidelines. I have ordered lab and chest x-ray for tomorrow. He has completed his Rocephin. We will continue to titrate down his oxygen as tolerated. I have ordered an ambulation study for tomorrow as well as we will need to most likely initiate a home O2 order. We will continue to monitor and treat as needed. #[id number] [facility]
[2020-01-25] MEDS: IPRATROPIUM/ALBUTEROL 3 ML VIAL NEB SCH ×2 (09:45→13:58)
[2020-01-25] MEDS: BIFIDOBACTERIUM INFANTIS 4 MG CAP PO SCH (10:36)
[2020-01-25] MEDS: FINASTERIDE 5 MG TAB PO SCH (10:36)
[2020-01-25] MEDS: Wellbutrin XL 150 MG TAB PO SCH (10:37)
[2020-01-25] MEDS: guaiFENesin ER TAB 600 MG TAB PO SCH ×2 (10:37→21:21)
[2020-01-25] MEDS: LISINOPRIL 10 MG TAB PO SCH (10:37)
[2020-01-25] MEDS: CITALOPRAM HBR 20 MG TAB PO SCH (10:37)
[2020-01-25] MEDS: ENOXAPARIN SODIUM 60 MG/0.6 ML SYG SUBCU SCH ×2 (10:38→21:22)
[2020-01-25] MEDS: NON-FORMULARY MEDICATION 1 EA MIS (Leflunomide [Arava] 20 MG) PO SCH (10:38)
[2020-01-25] MEDS: NON-FORMULARY MEDICATION 1 EA MIS (Hydroxychloroquine Sulfate [Plaquenil] 200 MG) PO SCH ×2 (10:38→21:23)
[2020-01-25] MEDS: DEXAMETHASONE INJ 10 MG/ML VIAL IV SCH ×2 (10:38→21:21)
[2020-01-25] MEDS: METHYLPHENIDATE HCL 20 MG PO SCH ×2 (10:38→21:23)
[2020-01-25] MEDS ORDERED: ALBUTEROL INHALER 64 PUFF/8GM INH PRN (13:58)
[2020-01-25] MEDS: ALBUTEROL INHALER 64 PUFF/8GM INH SCH ×2 (16:55→21:35)
[2020-01-25] MEDS: cefTRIAXone SODIUM 1 GM in SODIUM CHL 0.9% 50ML MIN-BAG+ 50 ML IVPB SCH (21:17)
[2020-01-26] MEDS: DOCUSATE SODIUM 100 MG CAP PO SCH ×4 (03:07→20:15)
[2020-01-26] MEDS: HYDROcodone 10MG/APAP 325MG 1 EA TAB PO SCH ×4 (03:07→21:15)
[2020-01-26] MEDS: diazePAM 5 MG TAB PO SCH ×4 (03:08→20:17)
[2020-01-26] MEDS: METHADONE HCL 10 MG TAB PO SCH ×4 (03:08→21:15)
[2020-01-26] MEDS: PANTOPRAZOLE SODIUM TAB 40 MG PO SCH (06:07)
--- NOTE | 2020-01-26 07:42 | PN ---
SUPERVISING PHYSICIAN: Zelalem Taveras MD DATE: 01/25/20 SUBJECTIVE: The patient is lying in bed. He awakens easily. He is much calmer today than he has been in the past. He got to speak to his through the window of his hospital room. We again discussed his discharge plan. His brought his prosthesis as well as his rolling walker. Hopefully, he can begin walking tomorrow. OBJECTIVE: VITAL SIGNS: Temperature 98.2, heart rate 103, blood pressure 122/77, respiratory rate 22, O2 saturation 95% on high flow canula at 5 liters. RESPIRATORY: Diminished throughout. CARDIAC: Regular rate and rhythm, at times is tachycardic. NEUROLOGIC: Awake, alert and oriented times three. LABORATORY: No labs or films to report at this time. . ASSESSMENT: 1. COVID pneumonitis. 2. Acute hypoxemic respiratory failure secondary to #1. 3. Hypertension. 4. Chronic pain syndrome. 5. History of rheumatoid arthritis on immunosuppressive medication. PLAN: We will continue present supportive care and continue his COVID lab and guidelines including titrating his oxygen down as needed. I have ordered lab and chest x-ray for tomorrow. I have also ordered physical therapy consultation for evaluation and treatment and also for nursing to walk him several times daily. Hopefully, we can titrate him down several liters of oxygen and he can go home on home 02. #[id number] [facility]
--- NOTE | 2020-01-26 07:53 | RAD ---
CHEST, ONE VIEW XR CLINICAL HISTORY: covid COMPARISON: 01/24/2020 TECHNIQUE: AP Chest. FINDINGS: Heart is mildly enlarged. There are scattered interstitial and airspace opacities throughout both lower lobes and minimally in the right upper lobe. Left lower lobe aeration has slightly improved. No edema or pneumothorax. There is no large volume effusion. There is a skinfold projecting over the left lung apex. Mild thoracic degenerative change. There is a right and left shoulder prosthesis. IMPRESSION: 1. Persistent bilateral lower lobe and right upper lobe pneumonia. Left lower lobe airspace disease has slightly improved. Electronically signed by: Fatmata Austin DO 01/26/2020 7:51 AM [facility]
[2020-01-26] MEDS: LISINOPRIL 10 MG TAB PO SCH (09:12)
[2020-01-26] MEDS: ENOXAPARIN SODIUM 60 MG/0.6 ML SYG SUBCU SCH ×2 (09:13→20:15)
[2020-01-26] MEDS: Wellbutrin XL 150 MG TAB PO SCH (09:13)
[2020-01-26] MEDS: BIFIDOBACTERIUM INFANTIS 4 MG CAP PO SCH (09:13)
[2020-01-26] MEDS: CITALOPRAM HBR 20 MG TAB PO SCH (09:14)
[2020-01-26] MEDS: METHYLPHENIDATE HCL 20 MG PO SCH ×2 (09:14→20:14)
[2020-01-26] MEDS: guaiFENesin ER TAB 600 MG TAB PO SCH ×2 (09:14→20:19)
[2020-01-26] MEDS: FINASTERIDE 5 MG TAB PO SCH (09:14)
[2020-01-26] MEDS: NON-FORMULARY MEDICATION 1 EA MIS (Hydroxychloroquine Sulfate [Plaquenil] 200 MG) PO SCH ×2 (09:15→20:14)
[2020-01-26] MEDS: NON-FORMULARY MEDICATION 1 EA MIS (Leflunomide [Arava] 20 MG) PO SCH (09:15)
[2020-01-26] MEDS: ALBUTEROL INHALER 64 PUFF/8GM INH SCH ×4 (10:15→21:06)
[2020-01-26] MEDS: cefTRIAXone SODIUM 1 GM in SODIUM CHL 0.9% 50ML MIN-BAG+ 50 ML IVPB SCH (19:24)
[2020-01-26] MEDS: IV SET AND CAP CHANGE INJ INJ SCH (23:19)
[2020-01-27] MEDS: HYDROcodone 10MG/APAP 325MG 1 EA TAB PO SCH ×3 (03:03→15:08)
[2020-01-27] MEDS: METHADONE HCL 10 MG TAB PO SCH ×3 (03:04→15:08)
[2020-01-27] MEDS: DOCUSATE SODIUM 100 MG CAP PO SCH ×3 (03:04→15:08)
[2020-01-27] MEDS: diazePAM 5 MG TAB PO SCH ×3 (03:04→15:07)
[2020-01-27] MEDS: PANTOPRAZOLE SODIUM TAB 40 MG PO SCH (06:20)
--- NOTE | 2020-01-27 08:20 | PN ---
SUPERVISING PHYSICIAN: Zelalem Taveras MD DATE: 01/26/20 SUBJECTIVE: The patient is lying in bed. He seems to be somewhat distant. Physical therapy reported today that the patient did not participate in physical therapy or getting up out of bed. He has a prosthesis and did not want to use it. I discussed with the patient it would be difficult to discharge him from the hospital if he did not participate in physical therapy. He agreed to do so. He denied chest pain, palpitations, tachycardia, nausea, vomiting or diarrhea. OBJECTIVE: VITAL SIGNS: Temperature 98.1, heart rate 95, blood pressure 120/75, respiratory rate 20, O2 saturation 93% on 4 liters nasal cannula. RESPIRATORY: Essentially clear to auscultation bilaterally. CARDIAC: Regular rate and rhythm. NEUROLOGIC: Awake, alert. LABORATORY: WBC 9.5, hemoglobin 12.8, hematocrit 39.6. He has a left shift on differential. Fibrinogen 867, D-dimer 1,810. Electrolytes within normal limits except for calcium is low at 7.9. AST 32, ALT 65, alkaline phosphatase 124. RADIOLOGY: Chest x-ray shows persistent bilateral lower lobe and right upper lobe pneumonia, left lower lobe airspace disease has slightly improved. All other labs and films have been reviewed via the EMR. ASSESSMENT: 1. COVID pneumonitis. 2. Acute hypoxemic respiratory failure secondary to #1. 3. Hypertension. 4. Chronic pain syndrome. 5. History of rheumatoid arthritis on immunosuppressive medication. PLAN: We will continue present supportive care. We will continue to follow the COVID-19 guidelines. The patient frequently asks to go home. He did not follow physical therapy recommendations today. I have encouraged him to do so tomorrow. I explained to the patient if we cannot ensure safety to go home, he would not be discharged from the hospital. The patient voiced understanding. I have ordered lab for in the morning. We will continue to monitor closely and follow as needed. #[id number] [facility]
[2020-01-27] MEDS: ALBUTEROL INHALER 64 PUFF/8GM INH SCH ×2 (08:36→12:12)
[2020-01-27] MEDS: FINASTERIDE 5 MG TAB PO SCH (08:49)
[2020-01-27] MEDS: Wellbutrin XL 150 MG TAB PO SCH (08:49)
[2020-01-27] MEDS: guaiFENesin ER TAB 600 MG TAB PO SCH (08:49)
[2020-01-27] MEDS: BIFIDOBACTERIUM INFANTIS 4 MG CAP PO SCH (08:49)
[2020-01-27] MEDS: LISINOPRIL 10 MG TAB PO SCH (08:50)
[2020-01-27] MEDS: CITALOPRAM HBR 20 MG TAB PO SCH (08:50)
[2020-01-27] MEDS: ENOXAPARIN SODIUM 60 MG/0.6 ML SYG SUBCU SCH (08:55)
[2020-01-27] MEDS: NON-FORMULARY MEDICATION 1 EA MIS (Hydroxychloroquine Sulfate [Plaquenil] 200 MG) PO SCH (08:55)
[2020-01-27] MEDS: NON-FORMULARY MEDICATION 1 EA MIS (Leflunomide [Arava] 20 MG) PO SCH (08:55)
[2020-01-27] MEDS: METHYLPHENIDATE HCL 20 MG PO SCH (08:56)
[2020-01-27 13:21] VITALS: BP 96/65; TEMP 98.5; O2SAT 87
--- NOTE | 2020-01-30 15:50 | DS ---
SUPERVISING PHYSICIAN: Zelalem Taveras MD ADMISSION DIAGNOSIS: 1. Acute hypoxemic respiratory failure. 2. COVID pneumonitis. 3. Hypertension. 4. Chronic pain syndrome. 5. History of rheumatoid arthritis on immunosuppressant medication. DISCHARGE DIAGNOSIS: 1. COVID pneumonitis. 2. Acute hypoxemic respiratory failure secondary to #1. 3. Hypertension. 4. Chronic pain syndrome. 5. History of rheumatoid arthritis on immunosuppressive medication. REASON FOR HOSPITALIZATION: This is a 69-year-old male patient who was diagnosed with COVID pneumonitis as an outpatient and then he was noted to be hypoxic and was sent to the Emergency Room. He was evaluated in the ER with O2 saturation of 86% on room air. He was placed on 2 liters via nasal cannula and his O2 saturation increased to 94%. He is alert and oriented, in no distress, but hypoxic. He noted fever and chills associated with COVID as well. Lab work was done in the ER and showed white count 6.8, hemoglobin 11.5, but he did have a left shift of 92.5. D-dimer was greater than 5,000. CRP was 13.3. Sodium 133, potassium 3.3. Transaminases were mildly elevated, AST 90, ALT 88. Chest x-ray as well as CT of the chest showed bilateral patchy infiltrates consistent with COVID pneumonitis. Due to the hypoxia, the patient was referred for admission. At time of examination, the patient is alert and oriented and in no distress. LABORATORY: White count on discharge was 9,500, hemoglobin 12.8, hematocrit 39.6, platelet count 549,000. Differential showed a left shift as well as his RBC indices indicated a microcytic presentation. Coagulation studies showed D- dimer was down to 1810 compared to 3280 on admission. Fibrinogen 857. PTT normal. Chemistries at time of admission showed creatinine 0.68. Electrolytes were within normal limits. CO2 was a little elevated at 32. Calcium 7.9 but corrected to 8.2 for albumin 2.9. Magnesium 2.3. Bilirubin was within normal limits. Liver functions showed normal AST. ALT was still elevated at 65, but improving. Alkaline phosphatase was at 124. Troponin 0.04. RADIOLOGY: CT of the chest per radiologic interpretation showed common features of COVID pneumonia. Please see that report for details. He had multiple chest x-rays with the last one being on 01/26/20 and per radiologic interpretation showed persistent bilateral lower lobe and right upper lobe pneumonia. Left lower lobe airspace disease slightly improved. HOSPITAL COURSE: Mr. Hagen was admitted for treatment of COVID pneumonitis. It was very difficult to get him down on low flow oxygen. He was treated with standard of care at this point with Rocephin, azithromycin, Decadron, Remdesivir and breathing treatments. He did really well, just was hard to get him titrated down to oxygen that he could be supplemented on at home. Given his elevated D- dimer, he was started on Eliquis prior to discharge. Vital signs at discharge were showing he was afebrile, temperature 98.5, pulse 91, blood pressure 96/65, saturation 93% on nasal cannula at rest. Oxygen need was assessed and arrangements were made for him to have oxygen on discharge at home. PLAN: Mr. Hagen was discharged on 01/27/20. He was treated for a full course while in the hospital of 10 days of antibiotics and was not continued on antibiotics at discharge. He is to followup with Dr. Madrigal on discharge and call their office on 01/30/20. Arrangements were made for oxygen at home which will be continued at Dr. Madrigal's discretion. He was started on Eliquis given the fact that he had an elevated D-dimer on admission. Otherwise, no other antibiotics were continued as he had finished a full 10-day course and had improved although was still continuing with oxygen needs. Diet on discharge was usual diet as tolerated. Activity to increase as tolerated. Medications prescribed on discharge included Eliquis 5 mg twice daily, #28, with samples provided by [facility] with Dr. Madrigal to continue as needed. CONDITION ON DISCHARGE: Stable and improved. DISPOSITION: The patient was discharged home. [facility][id number] [facility]
== END 2020-01-27 16:25 | disposition home or self-care (01) | DRG 177 ==
LOC: ER 16:14 → MS 20:23 → OBSVTOIN 20:23
PROVIDERS: ADMIT Nurse Practitioner; ATTEND Nurse Practitioner Family
PROC: B32T1ZZ Computerized Tomography (CT Scan) of Left Pulmonary Artery using Low Osmolar Contrast (ICD-10-PCS; principal; 2020-01-17)
PROC: B32S1ZZ Computerized Tomography (CT Scan) of Right Pulmonary Artery using Low Osmolar Contrast (ICD-10-PCS; 2020-01-17)
PROC: XW033E5 Introduction of Remdesivir Anti-infective into Peripheral Vein, Percutaneous Approach, New Technology Group 5 (ICD-10-PCS; 2020-01-17)
DX: U07.1 COVID-19 (principal); J12.89 Other viral pneumonia; J96.01 Acute respiratory failure with hypoxia; E87.1 Hypo-osmolality and hyponatremia; E87.6 Hypokalemia; R74.02 Elevation of levels of lactic acid dehydrogenase [LDH]; I10 Essential (primary) hypertension; G89.4 Chronic pain syndrome; M06.9 Rheumatoid arthritis, unspecified; Z88.5 Allergy status to narcotic agent; Z91.040 Latex allergy status; Z79.891 Long term (current) use of opiate analgesic; Z79.899 Other long term (current) drug therapy

== ENCOUNTER → 2020-01-30 | Outpatient (CLI) | payer MEDICARE, OTHER | LOC: GMAE 15:02 | PROVIDERS: ATTEND Family Medicine | DX: J12.81 Pneumonia due to SARS-associated coronavirus (principal) ==

== ENCOUNTER → 2020-01-31 | Outpatient (CLI) | payer MEDICARE, OTHER ==
--- NOTE | 2020-01-31 17:07 | CT ---
EXAM DESCRIPTION: Chest w/o Contrast CLINICAL HISTORY: 69 years, Male, PNEUMONIA DUE TO SARS ASSOCIATED DELACRUZ VIRUS COMPARISON: Chest x-ray January 26, 2020, previous CT January 17, 2020 TECHNIQUE: Thin-section noncontrast axial CT images are obtained according to our protocol. Reconstructed MPR images are created and reviewed as well. FINDINGS: Lungs: Upper lobe subpleural emphysematous changes are similar to previous study. Infiltrative changes are seen in the lungs with groundglass density in the posterior upper lobes, in the right middle lobe, the lingula and lower lobes. In addition to ground glass density, subpleural fibrotic changes are seen throughout the lungs bilaterally. Distortion of architecture with honeycomb fibrosis is seen in the periphery as well as in a peribronchovascular distribution. No worrisome pulmonary mass or nodule to suggest malignancy complication. The pattern is not typical of usual interstitial pneumonitis. Compared to previous study January 17, 2020, groundglass infiltrates are similar in distribution but the interstitial fibrotic lung disease has markedly worsened. Mediastinum: Lymph nodes are normal in size. Normal vascular contours. Heart size is normal with no pericardial effusion. Chest wall/axilla: No mass or adenopathy. Lower neck/supraclavicular: No mass or adenopathy. Upper abdomen: Unremarkable upper abdominal viscera. Coronal and sagittal reformatted images confirm the findings. IMPRESSION: Bilateral groundglass infiltrates with development of extensive pulmonary fibrosis. This exam was performed according to our departmental dose-optimization program, which includes automated exposure control, adjustment of the mA and/or kV according to patient size and/or use of iterative reconstruction technique. Total DLP equals 291.19 mGycm. Electronically signed by: Lucio Walker MD 01/31/2020 5:06 PM [facility]
== END ==
LOC: LAB.O 10:36
PROVIDERS: ATTEND Family Medicine
DX: J12.81 Pneumonia due to SARS-associated coronavirus (principal); J84.10 Pulmonary fibrosis, unspecified; R50.9 Fever, unspecified

== ENCOUNTER → 2020-02-01 | Outpatient (CLI) | payer MEDICARE, OTHER | LOC: LAB.O 10:36 | PROVIDERS: ATTEND Family Medicine | DX: J12.81 Pneumonia due to SARS-associated coronavirus (principal); R50.9 Fever, unspecified ==

== ENCOUNTER 2020-03-07 17:01 | Emergency (ER) | payer MEDICARE, OTHER ==
[2020-03-07] MEDS ORDERED: LACTATED RINGERS 2,000 ML IVS ONE (17:28)
--- NOTE | 2020-03-07 17:53 | ED.PDOC ---
History of Present Illness - General Chief Complaint: General Stated Complaint: lethargic, short of breath, weakness, unable to vo Time Seen by Provider: 03/07/20 17:10 Source: family - patients Exam Limitations: no limitations - History of Present Illness Initial Comments: PATIENT WITH PROGRESSIVE DETERIORATION OF MS AT SNF OVER LAST WEEK, RECENT HOSPITALIZATION FOR SEPSIS, CONTINUED IV ABX AT SNF. PATIENT NOT TAKING PO, LAST URINATION 1-2 DAYS AGO. FAMILY DOES NOT WANT PATIENT ADMITTED TO HOSPITAL, THEY WISH US TO TREAT HIM AND RETURN HIM TO SNF. Timing/Duration: 1 week Severity: severe Improving Factors: nothing Worsening Factors: nothing Allergies/Adverse Reactions: Allergies Codeine Allergy (Verified 01/17/20 20:39) Latex Allergy (Verified 01/17/20 20:39) Morphine Allergy (Verified 01/17/20 20:39) Home Medications: Ambulatory Orders BuPROPion XL [Wellbutrin XL] 150 mg PO DAILY 01/17/20 Diazepam [Valium] 10 mg PO Q6H 01/17/20 Docusate Sodium [Colace] 100 mg PO Q6HR 01/17/20 Finasteride 5 mg PO DAILY 01/17/20 HYDROcodone 10MG/APAP 325MG [Demorest 10/325] 1 ea PO Q6H 01/17/20 Hydroxychloroquine Sulfate [Plaquenil] 200 mg PO BID 01/17/20 Leflunomide [Arava] 20 mg PO DAILY 01/17/20 Lisinopril 40 mg PO DAILY 01/17/20 Methadone HCl [Methadone] 10 mg PO Q6H 01/17/20 Methylphenidate HCl [Ritalin] 20 mg PO BID 01/17/20 Rituxan Hycela [id number] mg -Ut/11.7ML .[id number] 01/17/20 Apixaban [Eliquis] 5 mg PO BID 14 Days #28 tab 01/27/20 Azithromycin [Zithromax Z-Sher] 250 mg PO DAILY #4 tab 03/07/20 predniSONE 40 mg PO DAILY #10 tab 03/07/20 Review of Systems - Review of Systems Unable to Obtain Due To: condition, clinical condition Past Medical History (General) - Patient Medical History Hx Seizures: No Hx Stroke: No Hx Asthma: No Hx of COPD: No Hx Congestive Heart Failure: No Hx Pacemaker: No Hx Hypertension: Yes Hx Diabetes: No Hx Cancer: No Hx MRSA: No - Vaccination History Hx Tetanus, Diphtheria Vaccination: Yes Hx Influenza Vaccination: Yes Hx Pneumococcal Vaccination: No Immunizations Up to Date: Yes - Social History Hx Tobacco Use: No Hx Alcohol Use: Yes Hx Substance Use: No Hx Physical Abuse: No Hx Emotional Abuse: No - Activities of Daily Living [facility] (if applicable):: Melody Blanco - Female History Patient is a Female of Child Bearing Age (10 -59 yrs old): No Family Medical History - Family History Father Family History: Unknown Living Status: Unknown Mother Family History: Unknown Living Status: Physical Exam - Physical Exam General Appearance: Emaciated, Lethargic, Ill Appearing Neck: non-tender, full range of motion, supple Respiratory: chest non-tender, lungs clear, normal breath sounds Cardiovascular/Chest: normal peripheral pulses, JVD, tachycardia Gastrointestinal/Abdominal: normal bowel sounds, non tender, soft, no organomegaly Extremity: normal range of motion, non-tender, normal inspection Neurologic: alert, normal mood/affect, oriented x 3 Skin Exam: normal color, warm/dry Lymphatic: no adenopathy Progress - Progress Progress: 03/07/20 20:29 REASSESSMENT OF THE PATIENT: MAJOR CHANGE, MUCH MORE ALERT, CONVERSANT, EVEN LIVELY AFTER 2 LITERS OF IV FLUID. PATIENT ADMITS HE HAS NOT BEEN EATING OR DRINKING WELL, HE IS REPORTING HUNGER NOW AND ASKED HIS TO GO GET HIM SOMETHING TO EAT. PATIENT DOES ADMIT TO HISTORY OF SMOKING CIGARS, IT SEEMS HE HAS CHRONICALLY ELEVATED CO2 BASED ON HIS VENOUS BLOOD GAS MEASUREMENT. HIS 02 SAT ON 2L/NC IS 94% AND DENIES ANY SOB WHATSOEVER. LUNG EXAM DOES REVEAL SOME EXP WHEEZE, URINE VERY CONCENTRATED AND SUSPICIOUS FOR INFECTION. CXR DOES SHOW SIGNIFICANT BILAT PULM INFILTRATES, POSSIBLY C/W HEALING COVID PNEUMONIA, CANNOT RULE OUT ADDITIONAL SECONDARY INFILTRATE. WILL TREAT W/ BRONCHODIALATORS, IV STERIODS, AND IV ABX. WILL CONTINUE THIS THERAPY AT SNF. WILL GIVE ADDITIONAL LITER OF IVF PRIOR TO DISCHARGE TO [facility]. PATIENT DOES SEEM AMAZINGLY BETTER AFTER TREATMENT. PATIENT IS VERY RESISTANT TO HOSPITALIZATION AND IM NOT REALLY SURE HE EVEN NEEDS IT AT THIS TIME. CERTAINLY AN ADDITIONAL TRIAL OF OUTPAITNE TREATMENT AT THE [facility] IS WORTHWHILE. Departure - Departure Clinical Impression: Dehydration, Post-COVID syndrome, Pulmonary scarring Time of Disposition: 21:35 Disposition: Discharge to Home or Self Care Condition: Fair Departure Forms: ED Discharge - Pt. Copy, Patient Portal Self Enrollment Referrals: MARCIE DECKER MD [Primary Care Provider] - 1-2 Weeks Prescriptions: predniSONE 40 mg PO DAILY #10 tab Azithromycin [Zithromax Z-Sher] 250 mg PO DAILY #4 tab Home Medications: Ambulatory Orders BuPROPion XL [Wellbutrin XL] 150 mg PO DAILY 01/17/20 Diazepam [Valium] 10 mg PO Q6H 01/17/20 Docusate Sodium [Colace] 100 mg PO Q6HR 01/17/20 Finasteride 5 mg PO DAILY 01/17/20 HYDROcodone 10MG/APAP 325MG [Demorest ] 1 ea PO Q6H 01/17/20 Hydroxychloroquine Sulfate [Plaquenil] 200 mg PO BID 01/17/20 Leflunomide [Arava] 20 mg PO DAILY 01/17/20 Lisinopril 40 mg PO DAILY 01/17/20 Methadone HCl [Methadone] 10 mg PO Q6H 01/17/20 Methylphenidate HCl [Ritalin] 20 mg PO BID 01/17/20 Rituxan Hycela 1400-78571 mg -Ut/11.7ML .[id number] 01/17/20 Apixaban [Eliquis] 5 mg PO BID 14 Days #28 tab 01/27/20 Azithromycin [Zithromax Z-Sher] 250 mg PO DAILY #4 tab 03/07/20 predniSONE 40 mg PO DAILY #10 tab 03/07/20 Additional Instructions: RECOMMEND PULMONARY MEDICINE FOLLOW UP. CONTINUE NEB TREATMENTS AT THE SNF EVERY 4-6 HOUR FOR SOB. CONTINUE OXYGEN AT THE SNF PER NASAL CANULA. PLEASE TRY TO [facility] A PULSE OX OF 90-92 %
--- NOTE | 2020-03-07 19:36 | RAD ---
EXAM DESCRIPTION: Chest,1 View CLINICAL HISTORY: 69 years Male, sob COMPARISON: 01/31/2020 TECHNIQUE: Single AP chest radiograph. FINDINGS: A PICC terminates near the cavoatrial junction. Extensive bilateral lung opacities with increased. No pneumothorax or pleural effusion. Stable cardiomediastinal contour. IMPRESSION: 1. Satisfactory position of right-sided PICC. 2. Increased bony opacities compared to the previous exam. Findings concerning for multifocal infection. Electronically signed by: Salvador Wong MD 03/07/2020 7:35 PM [facility]
[2020-03-07] MEDS ORDERED: methylPREDNISolone SODIUM SUC 125 MG/2 ML VIAL IV ONE (19:55)
[2020-03-07] MEDS ORDERED: cefTRIAXone SODIUM 2 GM in SODIUM CHL 0.9% 100ML MINI-BAG 100 ML IVPB ONE (19:55)
[2020-03-07] MEDS ORDERED: AZITHROMYCIN IV 500 MG in SODIUM CHLORIDE 0.9% 250ML 250 ML IVPB ONE (19:55)
[2020-03-07] MEDS ORDERED: IPRATROPIUM BROMIDE NEBS 0.5 MG/2.5 ML VIAL NEB ONE (19:56)
[2020-03-07] MEDS ORDERED: ALBUTEROL SULFATE NEBS 15 MG, IPRATROPIUM BROMIDE NEBS 0.5 MG NEB ONE ×2 (19:56)
[2020-03-07] MEDS ORDERED: LACTATED RINGERS 1,000 ML IVS ONE ×2 (20:05→20:15)
[2020-03-07] MEDS ORDERED: LACTATED RINGERS 1,000 ML ONE (20:08)
--- NOTE | 2020-03-07 22:28 | CT ---
EXAM DESCRIPTION: Chest w/Contrast 03/07/2020 10:18 PM REGIONAL SALES TRAINER CLINICAL HISTORY: 69 years, Male, evaluate worseing pulm densities. COMPARISON: 01/31/2020. FINDINGS: Multiple transaxial tomograms of the chest were obtained from the lung apices through the adrenal glands, utilizing 5 mm slice thickness at 5 mm interval reconstruction after the administration of IV contrast. No dosing amount was provided for interpretation. Multiplanar reformats in the sagittal and coronal plane were generated and reviewed. An individualized dose optimization technique, Automated Exposure Control, was utilized for the performed procedure. Again there is noted the presence of bilateral shoulder arthroplasty limiting diagnosis/streak artifact. The lungs parenchyma demonstrate the presence of minimal bilateral upper and lower lobe peripheral groundglass opacities with more defined interlobular septal thickening-crazy paving, suspicious for COVID-19 pneumonia, findings have evolved in comparison with prior study. No significant masses and/or consolidations are identified. The trachea mainstem bronchus demonstrate to be normal. There is no significant pleural and/or pericardial effusions. There is a right upper extremity PICC line in place. The heart is normal in size. There is minimal coronary artery calcifications. The thoracic aorta demonstrate intimal aortic arch calcification. There is no evidence for dissection. The central pulmonary arteries demonstrate to be normal with no significant major filling defects. There is no significant mediastinal and/or hilar lymphadenopathy. The axillary regions demonstrate to be clear. The bone windows demonstrate no significant skeletal lesions. There is minimal anterior spondylosis with no significant compression deformities. The visualized portions of the upper abdomen demonstrate to be within normal limits. IMPRESSION: MINIMAL GROUNDGLASS DENSITIES AND MORE CRAZY PAVING PATTERN WHEN COMPARED TO PREVIOUS CT SCAN CORRESPONDING TO OCCLUSION OF VIRAL PNEUMONIA/COVID 19 PNEUMONIA. LESS LIKELY OTHER PROCESSES SUCH INFLUENZA PNEUMONIA AND ORGANIZING PNEUMONIA, CAN be SEEN WITH DRUG TOXICITY AND CONNECTIVE TISSUE DISEASE, CAN CAUSE A SIMILAR IMAGING PATTERN. (REFERENCE: HTTPS://PUBS.RSNA.ORG/DOI/FULL/10.1148/RYCT. 206-580-3369). 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 RIGHT UPPER EXTREMITY PICC LINE IN PLACE. Electronically signed by: Matt Rose MD 03/07/2020 10:26 PM REGIONAL SALES TRAINER
[2020-03-07 22:59] VITALS: BP 111/70; TEMP 98; O2SAT 96
== END 2020-03-07 23:17 | disposition home or self-care (01) ==
LOC: ER 17:01
DX: E86.0 Dehydration (principal); J98.4 Other disorders of lung; G35 Multiple sclerosis; I10 Essential (primary) hypertension; Z86.16 Personal history of COVID-19; Z79.899 Other long term (current) drug therapy; Z79.01 Long term (current) use of anticoagulants; Z88.5 Allergy status to narcotic agent; Z91.040 Latex allergy status
CPT/HCPCS: 36415; 36600; 71045; 71260; 80053; 81001; 82803; 82805; 83605; 85025; 87040; 87086; 93005; 94644; J0456; J0696; J2930; J7050; J7120; J7611; J7644

== ENCOUNTER 2020-03-09 15:26 | Emergency (ER) | payer MEDICARE, OTHER ==
--- NOTE | 2020-03-09 15:36 | ED.PDOC ---
History of Present Illness - General Time Seen by Provider: 03/09/20 15:29 - History of Present Illness Initial Comments: 69 M +pmh presents with spouse to ED c/o acute onset right shoulder pain that happened during physical therapy approximately 30 minutes ago. He states during therapy, he felt a pop and immediately had pain. + h/o similar sx's with shoulder dislocation. + arthroplasty of the right shoulder. No alleviating factors. Use of his shoulder exacerbates the pain. Denies associated numbness/tingling, weakness. He is otherwise with no other symptoms or complaints. Allergies/Adverse Reactions: Allergies Codeine Allergy (Verified 03/09/20 15:45) Latex Allergy (Verified 03/09/20 15:45) Morphine Allergy (Verified 03/09/20 15:45) Home Medications: Ambulatory Orders BuPROPion XL [Wellbutrin XL] 150 mg PO DAILY 01/17/20 Diazepam [Valium] 10 mg PO BID 01/17/20 Docusate Sodium [Colace] 100 mg PO Q6HR 01/17/20 Finasteride 5 mg PO DAILY 01/17/20 HYDROcodone 10MG/APAP 325MG [Stevinson 10/325] 1 ea PO Q6H PRN 01/17/20 Hydroxychloroquine Sulfate [Plaquenil] 200 mg PO BID 01/17/20 Lisinopril 40 mg PO DAILY 01/17/20 Methadone HCl [Methadone] 10 mg PO Q6H PRN 01/17/20 Methylphenidate HCl [Ritalin] 20 mg PO BID 01/17/20 Apixaban [Eliquis] 5 mg PO BID 14 Days #28 tab 01/27/20 Azithromycin [Zithromax Z-Sher] 250 mg PO DAILY #4 tab 03/07/20 predniSONE 40 mg PO DAILY #10 tab 03/07/20 Albuterol Sulfate Nebs [Proventil Nebs] 2.5 mg INH QID PRN 03/09/20 B Complex W/ C [B Complex/Vitamin C] 1 cap PO DAILY 03/09/20 Cefepime [Maxipime] 2 gm IV BID 03/09/20 Dextromethorphan-Guaifenesin [Biocotron] 1 liq PO BID 03/09/20 Fluticasone Propionate (Nasal) [Fluticasone Propionate] 50 mcg INH DAILY 03/09/20 Lactobacillus [Acidophilus Lactobacilli] 1 cap PO QID 03/09/20 Megestrol Acetate 400 mg PO BID 03/09/20 Nutritional Supplements [Ismael] 1 pow PO BID 03/09/20 Review of Systems - Review of Systems Constitutional: Denies: chills, fever Respiratory: Denies: cough, short of breath - none beyond baseline and currently using baseline oxygen requirements Cardiology: Denies: chest pain Gastrointestinal/Abdominal: Denies: abdominal pain, nausea, vomiting Musculoskeletal: States: joint pain, joint swelling. Denies: back pain, neck pain Skin: Denies: change in color, rash Neurological: Denies: headache, numbness, weakness - no associated weakness to RUE Past Medical History (General) - Patient Medical History Hx Seizures: No Hx Stroke: No Hx Asthma: No Hx of COPD: No Hx Congestive Heart Failure: No Hx Pacemaker: No Hx Hypertension: Yes Hx Diabetes: No Hx Cancer: No Hx MRSA: No - Vaccination History Hx Tetanus, Diphtheria Vaccination: Yes Hx Influenza Vaccination: Yes Hx Pneumococcal Vaccination: No - Social History Hx Tobacco Use: No Hx Alcohol Use: Yes Hx Substance Use: No Hx Physical Abuse: No Hx Emotional Abuse: No Family Medical History - Family History Father Family History: Unknown Living Status: Unknown Mother Family History: Unknown Living Status: Physical Exam - Physical Exam General Appearance: Alert, Obvious distress Eyes, Ears, Nose, Throat Exam: PERRL/EOMI, normal ENT inspection Neck: non-tender, supple Cardiovascular/Respiratory: regular rate, rhythm, no M/R/G, normal peripheral pulses, no JVD, other - No acute respiratory distress and requiring his same normal supplemental O2 level, no tachypnea, no accessory muscle use Abdominal Exam: non-tender Shoulder Exam: asymmetry - + dislocation to right shoulder with TTP, posterior dislocation on examination, neurovascularly intact distally with cap refill <2 seconds, 2+ radial pulse, deformity, limited ROM, pain Elbow/Forearm Exam: normal inspection, non-tender - single healing skin tear with steri-strips in place Wrist Exam: normal inspection, non-tender Hand Exam: normal inspection, non-tender Neuro/Tendon: normal sensation, normal motor functions, responds to pain Mental Status: alert, oriented x 3 Skin Exam: normal color, warm/dry, other - no rash Progress - Progress Progress: Dario Rivera DO Emergency Medicine Physician [id number] Appropriate PPE of surgical mask, gown, gloves, and eye protection (if encounter >5 minutes) utilized with every patient encounter; in accordance with hospital policy. Presents for dislocation of right shoulder arthroplasty. I will perform imaging, provide appropriate pharmacotherapy, and continue to monitor/reassess. Dispo will depend on imaging results, reduction, and overall course in ED; however, discharge home is expected with f/u, education, and possible rx. 17:01 Rechecked pt with family member at bedside. DAVID, TIMMY. I have discussed radiology results, my clinical impression, and diagnosis. I have also discussed plan for discharge home with f/u, education, and use of OTC Ibuprofen/Aleve as well as cryotherapy for pain control and the pain medications he already has at home. ED return precautions provided. Pt and family member voice understanding, agree with plan, and all questions answered. - Results/Orders Results/Orders: EXAM DESCRIPTION: Right shoulder, 2 radiographs CLINICAL HISTORY: Shoulder pain after physical therapy. Reverse total shoulder arthroplasty FINDINGS/ IMPRESSION: Dislocation of the humeral component reverse total shoulder arth roplasty. Lateral and posterior dislocation. No periprosthetic fracture or osteolysis identified of the humeral or glenoid component Acromioclavicular joint separation. Superior displacement of the clavicle about 1 cm relative to the inferior acromion. The width of the acromioclavicular joint about 11 mm Electronically signed by: Zelalem Albrecht MD 03/09/2020 4:07 PM SENIOR SAFETY MANAGEMENT CONSULTANT EXAM: XR Right Shoulder Complete, 3 Views CLINICAL HISTORY: Post reduction TECHNIQUE: 3 views of the right shoulder. Image/s obtained at 5:01 PM COMPARISON: 4:03 PM the same day FINDINGS: Bones/joints: Dislocation of the right shoulder prosthesis is reduced. No fracture noted. Soft tissues: No abnormality noted. Tubes, lines and devices: Right percutaneous catheter is identified. IMPRESSION: Dislocation of the right shoulder prosthesis is reduced. No fracture noted. Electronically signed by: Josey Zarco MD 03/09/2020 5:33 PM SENIOR SAFETY MANAGEMENT CONSULTANT Vital Signs - 24 hr 03/09/20 03/09/20 03/09/20 15:27 15:39 17:01 Temperature 97.9 F Pulse Rate [ 97 H 97 H 93 H Pulse ox] Respiratory 20 20 20 Rate Blood Pressure 145/88 136/89 [L arm] O2 Sat by Pulse 95 94 L Oximetry Procedures - Joint Reduction right shoulder Conscious Sedation: No Reduction Attempts: 2 Pre-Procedure NV Exam: Yes - strength/motor/sensation intact distally, radial pulse 2+ and symmetric Post Joint Reduction Film: joint reduced Progress: Pt tolerated well with no complications. Departure - Departure Clinical Impression: Recurrent dislocation, right shoulder, History of arthroplasty of right shoulder, S/P PICC central line placement Time of Disposition: 17:01 Disposition: Discharge to Home or Self Care Condition: Excellent Instructions: Shoulder Dislocation (DC), Peripherally-Inserted Central Catheter (DC) Referrals: MARCIE DECKER MD [Primary Care Provider] - 1 Week Your, Orthopedic Surgeon [Other] - 1-2 Weeks (Call to setup appointment) Home Medications: Ambulatory Orders BuPROPion XL [Wellbutrin XL] 150 mg PO DAILY 01/17/20 Diazepam [Valium] 10 mg PO BID 01/17/20 Docusate Sodium [Colace] 100 mg PO Q6HR 01/17/20 Finasteride 5 mg PO DAILY 01/17/20 HYDROcodone 10MG/APAP 325MG [Stevinson 10/325] 1 ea PO Q6H PRN 01/17/20 Hydroxychloroquine Sulfate [Plaquenil] 200 mg PO BID 01/17/20 Lisinopril 40 mg PO DAILY 01/17/20 Methadone HCl [Methadone] 10 mg PO Q6H PRN 01/17/20 Methylphenidate HCl [Ritalin] 20 mg PO BID 01/17/20 Apixaban [Eliquis] 5 mg PO BID 14 Days #28 tab 01/27/20 Azithromycin [Zithromax Z-Sher] 250 mg PO DAILY #4 tab 03/07/20 predniSONE 40 mg PO DAILY #10 tab 03/07/20 Albuterol Sulfate Nebs [Proventil Nebs] 2.5 mg INH QID PRN 03/09/20 B Complex W/ C [B Complex/Vitamin C] 1 cap PO DAILY 03/09/20 Cefepime [Maxipime] 2 gm IV BID 03/09/20 Dextromethorphan-Guaifenesin [Biocotron] 1 liq PO BID 03/09/20 Fluticasone Propionate (Nasal) [Fluticasone Propionate] 50 mcg INH DAILY 02/17 04/08 Lactobacillus [Acidophilus Lactobacilli] 1 cap PO QID 03/09/20 Megestrol Acetate 400 mg PO BID 03/09/20 Nutritional Supplements [Ismael] 1 pow PO BID 03/09/20
[2020-03-09] MEDS ORDERED: fentaNYL CITRATE INJ 50 MCG/ML 2 ML AMP IV ONE (15:41)
[2020-03-09] MEDS ORDERED: HYDROmorphone HCL INJ 2 MG/ML VIAL IV ONE (15:59)
--- NOTE | 2020-03-09 16:09 | RAD ---
EXAM DESCRIPTION: Right shoulder, 2 radiographs CLINICAL HISTORY: Shoulder pain after physical therapy. Reverse total shoulder arthroplasty FINDINGS/ IMPRESSION: Dislocation of the humeral component reverse total shoulder arthroplasty. Lateral and posterior dislocation. No periprosthetic fracture or osteolysis identified of the humeral or glenoid component Acromioclavicular joint separation. Superior displacement of the clavicle about 1 cm relative to the inferior acromion. The width of the acromioclavicular joint about 11 mm Electronically signed by: Zelalem Albrecht MD 03/09/2020 4:07 PM [facility]
--- NOTE | 2020-03-09 17:35 | RAD ---
EXAM: XR Right Shoulder Complete, 3 Views CLINICAL HISTORY: Post reduction TECHNIQUE: 3 views of the right shoulder. Image/s obtained at 5:01 PM COMPARISON: 4:03 PM the same day FINDINGS: Bones/joints: Dislocation of the right shoulder prosthesis is reduced. No fracture noted. Soft tissues: No abnormality noted. Tubes, lines and devices: Right percutaneous catheter is identified. IMPRESSION: Dislocation of the right shoulder prosthesis is reduced. No fracture noted. Electronically signed by: Josey Zarco MD 03/09/2020 5:33 PM [facility]
[2020-03-09 18:50] VITALS: BP 137/98; TEMP 98.7; O2SAT 98
== END 2020-03-09 18:50 | disposition home or self-care (01) ==
LOC: ER 15:26
DX: T84.028A Dislocation of other internal joint prosthesis, initial encounter (principal); Z96.611 Presence of right artificial shoulder joint; Z79.01 Long term (current) use of anticoagulants; Z79.899 Other long term (current) drug therapy; Z88.5 Allergy status to narcotic agent; Z91.040 Latex allergy status; Y84.8 Other medical procedures as the cause of abnormal reaction of the patient, or of later complication, without mention of misadventure at the time of the procedure; Y92.9 Unspecified place or not applicable
CPT/HCPCS: 73030; J1170; J3010

== ENCOUNTER → 2020-03-13 | Outpatient (CLI) | payer MEDICARE, OTHER ==
--- NOTE | 2020-03-13 14:11 | RAD ---
EXAM DESCRIPTION: Chest,2 Views CLINICAL HISTORY: PNEUMONIA COMPARISON: Previous chest x-ray March 07, 2020 TECHNIQUE: PA/lateral FINDINGS: Extensive bilateral pulmonary infiltrates. Central line from the right upper extremity was seen US coarse at the axillary level. Tip of the catheter is in the upper right heart. Bilateral reverse shoulder arthroplasties. Heart size is normal with prominent vascularity. No pneumothorax or pleural effusion. Distended bowel in the upper abdomen. Compared to previous study, pulmonary infiltrates appear relatively stable. IMPRESSION: Bilateral pulmonary infiltrates consistent with pneumonia. Electronically signed by: Lucio Walker MD 03/13/2020 2:10 PM [facility]
--- NOTE | 2020-03-13 14:12 | US ---
EXAM DESCRIPTION: Venous,Lower Extremity RT (accession [id number]), Extremity,Lower RT Arteries (accession [id number]): Ultrasound. CLINICAL HISTORY: PAIN IN RIGHT FOOT COMPARISON: None Available. TECHNIQUE: Two -dimensional and doppler sonographic evaluation of the deep venous system of the bilateral lower extremities. FINDINGS: Doppler evaluation shows normal color flow and normal phasicity and augmentation of the bilateral common femoral veins, junctions with the bilateral proximal saphenous veins, femoral veins, popliteal veins, greater bilateral saphenous vein junction with the bilateral common femoral veins, peroneal and posterior tibial veins. These veins showed normal occlusion with transducer pressure. Two-dimensional survey showed no echogenic clot within these veins. IMPRESSION: Duplex ultrasound evaluation of the bilateral lower extremity deep venous systems showing no evidence of thrombosis. Electronically signed by: Sunil Green MD 03/13/2020 2:11 PM [facility]
--- NOTE | 2020-03-13 14:12 | US ---
EXAM DESCRIPTION: Venous,Lower Extremity RT (accession [id number]), Extremity,Lower RT Arteries (accession [id number]): Ultrasound. CLINICAL HISTORY: PAIN IN RIGHT FOOT COMPARISON: None Available. TECHNIQUE: Two -dimensional and doppler sonographic evaluation of the deep venous system of the bilateral lower extremities. FINDINGS: Doppler evaluation shows normal color flow and normal phasicity and augmentation of the bilateral common femoral veins, junctions with the bilateral proximal saphenous veins, femoral veins, popliteal veins, greater bilateral saphenous vein junction with the bilateral common femoral veins, peroneal and posterior tibial veins. These veins showed normal occlusion with transducer pressure. Two-dimensional survey showed no echogenic clot within these veins. IMPRESSION: Duplex ultrasound evaluation of the bilateral lower extremity deep venous systems showing no evidence of thrombosis. Electronically signed by: Sunil Green MD 03/13/2020 2:11 PM [facility]
== END ==
LOC: LAB.O 12:00
PROVIDERS: ATTEND Family Medicine
DX: M79.671 Pain in right foot (principal); J18.9 Pneumonia, unspecified organism; R00.0 Tachycardia, unspecified; J96.00 Acute respiratory failure, unspecified whether with hypoxia or hypercapnia; E87.1 Hypo-osmolality and hyponatremia

== ENCOUNTER → 2020-03-14 | Outpatient (CLI) | payer MEDICARE, OTHER ==
--- NOTE | 2020-03-14 11:03 | CT ---
EXAM DESCRIPTION: CTA Chest CLINICAL HISTORY: 69 years, Male, PSEUDOMONA BACTERIUM COMPARISON: Previous CT chest March 07, 2019 TECHNIQUE: CT pulmonary angiography is performed with thin-section multi detector technique during rapid bolus administration of routine adult dose of nonionic iodinated IV contrast IV contrast media. Multiplanar reformatted images are reviewed along with source images and maximum intensity projection oblique images. FINDINGS: Normal enhancement of pulmonary arteries. Normal enhancement of cardiac chambers. Heart is enlarged with extensive coronary calcification Early enhancement of the aorta is negative for aneurysm or dissection. Bilateral pulmonary infiltrates consistent with pneumonia. No worrisome nodule or mass in the lungs. Underlying emphysematous and fibrotic changes moderate severity. In the upper abdomen, small bowel loops appear mildly dilated and fluid-filled. Otherwise upper abdominal viscera are unremarkable. No chest wall mass or rib fracture. No axillary or lower cervical adenopathy. Inhomogeneous thyroid gland with coarse calcification. Coronal and sagittal reformatted images and oblique MIP images confirm normal pulmonary arterial enhancement. Compared to previous study, no major change. IMPRESSION: Negative for evidence of pulmonary embolic disease. Extensive bilateral pulmonary infiltrates consistent with pneumonia. This exam was performed according to our departmental dose-optimization program, which includes automated exposure control, adjustment of the mA and/or kV according to patient size and/or use of iterative reconstruction technique. Total DLP equals 569.01 mGycm. Electronically signed by: Lucio Walker MD 03/14/2020 11:01 AM ALLERGIST/IMMUNOLOGIST
== END ==
LOC: CT 08:07
PROVIDERS: ATTEND Family Medicine
DX: A41.9 Sepsis, unspecified organism (principal); R91.8 Other nonspecific abnormal finding of lung field

== ENCOUNTER 2020-03-20 18:50 | Emergency (ER) | payer MEDICARE, OTHER ==
[2020-03-20] MEDS ORDERED: SODIUM CHLORIDE 0.9% 1000ML 1,000 ML IVS ONE (19:26)
--- NOTE | 2020-03-20 20:23 | RAD ---
EXAM DESCRIPTION: Chest,1 View CLINICAL HISTORY:69 years Male, Tachycardia, dehydration, post-Covid bacteremia. Comparison: Chest radiograph dated 03/13/2020 FINDINGS/IMPRESSION: Unchanged position of right upper extremity PICC. Bilateral interstitial opacities, grossly unchanged. No pleural effusion. No pneumothorax. Cardiomediastinal silhouette is unchanged. No acute osseous abnormality. Bilateral shoulder arthroplasty. Electronically signed by: Alvin Mohr DO 03/20/2020 8:21 PM [facility]
--- NOTE | 2020-03-20 21:20 | CT ---
EXAM DESCRIPTION: CTA Lower Extremity 03/20/2020 9:10 PM PRESS SETTER CLINICAL HISTORY: 69 years, Male, R GREAT TOE NECROTIC/BLACK, POST-COVID BACTEREMIA. COMPARISON: None. PROCEDURE: Multiple transaxial tomograms from the lower abdomen and bilateral lower extremities performed after administration of large bolus of IV contrast for complete opacification of the distal abdominal aorta, iliac arteries and right lower extremity arterial system. Subsequent 2-D and 3-D multiplanar reformats, volume rendering technique and maximum intensity projection images were generated in independent workstation. An individualized dose optimization technique, Automated Exposure Control, was utilized for the performed procedure. Findings: Distal abdominal aorta: There is atheromatous plaque formation infrarenal portion with no evidence for aneurysm. The left common iliac artery is somewhat decreasing caliber with minimal atheromatous plaque formation although no focal areas of significant stenosis are demonstrated. Significant plaque is identified within the midportion left common femoral artery with markedly decreased caliber of the left superficial femoral artery. There is a status post left AKA. The right common iliac artery, right external iliac artery demonstrate to be widely patent.. Right lower extremity: Right common femoral artery minimal posterior plaque with no focal significant stenosis. Right profunda: There is normal patency with no gross abnormalities. Right superficial femoral artery: There is minimal plaque formation mid proximal distal aspect with no focal areas of significant stenosis. Minimal plaque dimension is identified within the assistant operator canal with no evidence for significant focal areas of stenosis (less than 40%). Right popliteal artery. There is normal appearance of the proximal and distal aspect. The midportion is suboptimal and evaluation due to streak artifact from total right knee arthroplasty. There is perhaps a high takeoff of the right anterior tibial artery which is obscured by the presence of streak artifact. Findings perhaps just height takeoff of the right tibial peroneal trunk at the knee joint level. Small caliber 3 distal vessel runoff with a dominant right posterior tibial artery. There is no evidence for significant focal stenosis and/or occlusion. The soft tissues of the right lower extremity demonstrate no gross significant abnormalities. Degenerative changes are noted within the midfoot articulation. Pelvis: The visualized portions of the pelvis demonstrate nondiagnostic gas pattern. Urinary bladder is unremarkable. Prostate gland is within normal limits. No pelvic lymphadenopathy and/or ascites. Bony structures demonstrate to be within normal limits.. IMPRESSION: MINIMAL ATHEROSCLEROTIC DISEASE DISTAL ABDOMINAL AORTA. STATUS POST LEFT AKA WITH MARKEDLY DECREASED CALIBER OF THE LEFT SUPERFICIAL FEMORAL ARTERY. NO FOCAL AREAS OF SIGNIFICANT STENOSIS WITHIN THE RIGHT PROXIMAL ARTERIAL SYSTEM (COMMON FEMORAL, SUPERFICIAL FEMORAL, PROFUNDA AND PROXIMAL ASPECT POPLITEAL ARTERY. THE PRESENCE OF STREAK ARTIFACT FROM TOTAL RIGHT HIP ARTHROPLASTY LIMITS EVALUATION. FINDINGS SUGGEST MOST LIKELY HIGH TAKEOFF OF THE TIBIAL PERONEAL TRUNK/ANTERIOR TIBIAL ARTERY WHICH IS OBSCURED BY STREAK ARTIFACT. NO FOCAL AREAS OF SIGNIFICANT STENOSIS WITHIN THE TIBIA AND FIBULA ALTHOUGH THE CALIBER OF THE VESSELS ARE MARKEDLY DECREASED. THE DOMINANT DISTAL RIGHT POSTERIOR TIBIAL ARTERY. Electronically signed by: Matt Rose MD 03/20/2020 9:18 PM [facility]
--- NOTE | 2020-03-20 22:19 | ED.PDOC ---
History of Present Illness - General Chief Complaint: General Stated Complaint: Right toe pain Time Seen by Provider: 03/20/20 19:10 Source: patient, family, other - Dr. Madrigal - History of Present Illness Initial Comments: Dr. Madrigal talked with me about the patient. He was informed the pt has a blackened right great toe, causing concerns for vascular insufficiency of RLE. Pt denies pain in the toe or foot. Background: Pt has known chronic BL PNE, FOR WHICH HE IS BEING TX WITH MERREM BY INFECTIOUS DZ, DR. WARNER. HE HAD COVID ON AND HAS BEEN IN AND OUT OF THE HOSPITAL AND NOW SKILLED NURSING SINCE. PT HAS FATIGUE BUT NO NEW SX, OTHER THAN THE BLACKENED/NECROTIC GREAT TOE. HAS KNOWN DECUBITUS ULCER, FATIGUE. Severity: moderate Improving Factors: nothing Worsening Factors: nothing Associated Symptoms: denies symptoms Allergies/Adverse Reactions: Allergies Codeine Allergy (Verified 03/09/20 15:45) Latex Allergy (Verified 03/09/20 15:45) Morphine Allergy (Verified 03/09/20 15:45) Home Medications: Ambulatory Orders BuPROPion XL [Wellbutrin XL] 150 mg PO DAILY 01/17/20 Diazepam [Valium] 10 mg PO BID 01/17/20 Docusate Sodium [Colace] 100 mg PO Q6HR 01/17/20 Finasteride 5 mg PO DAILY 01/17/20 HYDROcodone 10MG/APAP 325MG [[place] 10/325] 1 ea PO Q6H PRN 01/17/20 Hydroxychloroquine Sulfate [Plaquenil] 200 mg PO BID 01/17/20 Lisinopril 40 mg PO DAILY 01/17/20 Methadone HCl [Methadone] 10 mg PO Q6H PRN 01/17/20 Methylphenidate HCl [Ritalin] 20 mg PO BID 01/17/20 Apixaban [Eliquis] 5 mg PO BID 14 Days #28 tab 01/27/20 Azithromycin [Zithromax Z-Sher] 250 mg PO DAILY #4 tab 03/07/20 predniSONE 40 mg PO DAILY #10 tab 03/07/20 Albuterol Sulfate Nebs [Proventil Nebs] 2.5 mg INH QID PRN 03/09/20 B Complex W/ C [B Complex/Vitamin C] 1 cap PO DAILY 03/09/20 Cefepime [Maxipime] 2 gm IV BID 03/09/20 Dextromethorphan-Guaifenesin [Biocotron] 1 liq PO BID 03/09/20 Fluticasone Propionate (Nasal) [Fluticasone Propionate] 50 mcg INH DAILY 03/09/20 Lactobacillus [Acidophilus Lactobacilli] 1 cap PO QID 03/09/20 Megestrol Acetate 400 mg PO BID 03/09/20 Nutritional Supplements [Ismael] 1 pow PO BID 03/09/20 Review of Systems - Review of Systems Constitutional: Denies: chills, fever EENTM: States: no symptoms reported Respiratory: Denies: cough, short of breath Cardiology: Denies: chest pain, palpitations Gastrointestinal/Abdominal: Denies: nausea, vomiting Genitourinary: Denies: dysuria, pain Musculoskeletal: Denies: back pain, neck pain Skin: States: see HPI, change in color Neurological: States: no symptoms reported Endocrine: States: no symptoms reported Hematologic/Lymphatic: States: no symptoms reported All other Systems: Reviewed and Negative Past Medical History (General) - Patient Medical History Hx Seizures: No Hx Stroke: No Hx Dementia: No Hx Asthma: No Hx of COPD: No Hx Cardiac Disorders: Yes - Arrithmia Hx Congestive Heart Failure: No Hx Pacemaker: No Hx Hypertension: Yes Hx Thyroid Disease: No Hx Diabetes: No Hx Gastroesophageal Reflux: No Hx Renal Disease: No Hx Cancer: No Hx of HIV: No Hx Hepatitis C: No Hx MRSA: No MRSA Source:: Skin Surgical History: other - Vaccination History Hx Tetanus, Diphtheria Vaccination: Yes Hx Influenza Vaccination: No Hx Pneumococcal Vaccination: No - Social History Hx Tobacco Use: No Hx Chewing Tobacco Use: No Hx Alcohol Use: No Hx Substance Use: No Hx Substance Use Treatment: No Hx Depression: No Feels Threatened In Home Enviroment: No Feels Threatened In a Relationship: No Hx Physical Abuse: No Hx Emotional Abuse: No Hx Suspected Abuse: No - Activities of Daily Living Residential/Assisted Living (if applicable):: [facility] - Female History Patient is a Female of Child Bearing Age (10 -59 yrs old): No Patient : No - Triage Comment ED Triage Comment: The patient was moved onto ER bed 3 and left with rails up. He had noted coldness to his right lower leg and foot with weak pedal pulse noted. His great toe of the right foot had a black area noted at the tip of the toe and the 2 toes next to the great toe had areas of black suspected as narcrotic. He had a noted dcubous ulcer noted to his left buttox that had a dressing in place that the alf had been taking care of. He complained of pain in his right toes and his right lower leg being cold. He had no other complaints noted at the time of assessment and informed EMS that his foot had been like that for a long time. His also stated that as of last week he still had noted pneumonia. Family Medical History - Family History Father Family History: Unknown Living Status: Unknown Mother Family History: Unknown Living Status: Physical Exam - Physical Exam General Appearance: Alert, No apparent distress Eye Exam: bilateral normal Ears, Nose, Throat: hearing grossly normal, normal ENT inspection Neck: non-tender, full range of motion, supple Respiratory: lungs clear, normal breath sounds Cardiovascular/Chest: regular rate, rhythm, no murmur Peripheral Pulses: radial,right: 1+, radial,left: 1+, popliteal,left: 1+, dorsalis pedis,right: 1+, posterior tibialis,right: 1+ Gastrointestinal/Abdominal: non tender, soft, no organomegaly, no pulsatile mass Rectal Exam: deferred Extremity: no pedal edema, no calf tenderness Neurologic: no motor/sensory deficits, alert, oriented x 3 Skin Exam: other - R GREAT TOE, THE DISTAL ASPECT OF THE DISTAL PHAYLNX IS BLACKENED IN COLOR. ESCHEMIA VS ECCHYMOSIS. NTTP. Lymphatic: no adenopathy Progress - Results/Orders Results/Orders: R GREAT TOE - CTA SHOWS NO MACROVASCULAR ISCHEMIA, THUS VASCULAR CONSULT IS NOT INDICATED. THE SKIN IS IN TACT, THUS THERE IS NO WOUND AND THUS NO CONCERN OF OSTEOMYELITIS. I SUSPECT MICROVASCULAR ISHEMIA WHICH RESULTED IN DARKENED, HEMOSIDERIN STAINING. ELEV WBC AND NEUTS. ANEMIA, LIKELY OF CHRONIC DZ. NA 131 - BOLUSED. DEHYDRATION, MILD SINUS TACHYCARDIA - BOLUSED. PT'S KNOWN PNE IS STABLE. VS NO HPOXIA. I DISCUSSED THE DIAGNOSTIC FINDINGS TONIGHT WITH DR. MADRIGAL, WHO CONCURRED PT DOES NOT WARRANT VASCULAR SURGERY CONSULT. SAFE FOR DC TO SNF, WITH F/U WITH INFECTIOUS DX FOR PERSISTENT PNE; ON IV MERREM. - EKG/XRAY/CT EKG: Sinus, Tachy, no ST T wave changes Departure - Departure Clinical Impression: Bilateral interstitial pneumonia, Weight loss, unintentional, Neutrophilic leukocytosis, Hyponatremia, Dehydration, Elevated LFTs, Eschar of toe Anemia Qualifiers: Anemia type: unspecified type Qualified Code(s): D64.9 - Anemia, unspecified Fatigue Qualifiers: Fatigue type: other Qualified Code(s): R53.83 - Other fatigue Disposition: Discharge to SNF Condition: Fair Departure Forms: ED Discharge - Pt. Copy, Patient Portal Self Enrollment Instructions: Pneumonia, Adult (DC) Diet: resume usual diet Activity: increase activity as tolerated Referrals: MARCIE MADRIGAL MD [Primary Care Provider] - 1-2 Weeks Home Medications: Ambulatory Orders BuPROPion XL [Wellbutrin XL] 150 mg PO DAILY 01/17/20 Diazepam [Valium] 10 mg PO BID 01/17/20 Docusate Sodium [Colace] 100 mg PO Q6HR 01/17/20 Finasteride 5 mg PO DAILY 01/17/20 HYDROcodone 10MG/APAP 325MG [[place] 10/325] 1 ea PO Q6H PRN 01/17/20 Hydroxychloroquine Sulfate [Plaquenil] 200 mg PO BID 01/17/20 Lisinopril 40 mg PO DAILY 01/17/20 Methadone HCl [Methadone] 10 mg PO Q6H PRN 01/17/20 Methylphenidate HCl [Ritalin] 20 mg PO BID 01/17/20 Apixaban [Eliquis] 5 mg PO BID 14 Days #28 tab 01/27/20 Azithromycin [Zithromax Z-Sher] 250 mg PO DAILY #4 tab 03/07/20 predniSONE 40 mg PO DAILY #10 tab 03/07/20 Albuterol Sulfate Nebs [Proventil Nebs] 2.5 mg INH QID PRN 03/09/20 B Complex W/ C [B Complex/Vitamin C] 1 cap PO DAILY 03/09/20 Cefepime [Maxipime] 2 gm IV BID 03/09/20 Dextromethorphan-Guaifenesin [Biocotron] 1 liq PO BID 03/09/20 Fluticasone Propionate (Nasal) [Fluticasone Propionate] 50 mcg INH DAILY 03/09/20 Lactobacillus [Acidophilus Lactobacilli] 1 cap PO QID 03/09/20 Megestrol Acetate 400 mg PO BID 03/09/20 Nutritional Supplements [Ismael] 1 pow PO BID 03/09/20 Additional Instructions: Please continue your IV antibiotics per the infectious disease Dr. Please follow-up with Dr. Madrigal regarding your continued care.
[2020-03-21 00:07] VITALS: BP 152/86; TEMP 98; O2SAT 96
== END 2020-03-21 00:05 ==
LOC: ER 18:50
DX: D64.9 Anemia, unspecified (principal); J84.9 Interstitial pulmonary disease, unspecified; E86.0 Dehydration; R53.83 Other fatigue; D72.829 Elevated white blood cell count, unspecified; R94.5 Abnormal results of liver function studies; E87.1 Hypo-osmolality and hyponatremia; R63.4 Abnormal weight loss; L98.8 Other specified disorders of the skin and subcutaneous tissue; M79.674 Pain in right toe(s); R00.0 Tachycardia, unspecified; I10 Essential (primary) hypertension; Z86.14 Personal history of Methicillin resistant Staphylococcus aureus infection; Z86.16 Personal history of COVID-19; Z79.899 Other long term (current) drug therapy; Z79.01 Long term (current) use of anticoagulants; Z88.5 Allergy status to narcotic agent; Z91.040 Latex allergy status
CPT/HCPCS: 36415; 71045; 73706; 80053; 85025; 93005; J7030

== ENCOUNTER 2020-03-21 17:51 | Emergency (ER) | payer MEDICARE, OTHER ==
[2020-03-21 18:03] VITALS: TEMP 98.3
[2020-03-21] MEDS ORDERED: [UNRECOGNIZED DRUG - OTHER] IV ONE (18:10)
[2020-03-21] MEDS ORDERED: ALTEPLASE IV ONE (18:10)
[2020-03-21] MEDS ORDERED: fentaNYL CITRATE INJ 50 MCG/ML 2 ML AMP IV ONE (18:12)
[2020-03-21] MEDS ORDERED: BENZOCAINE 14% W/TETRACAINE 20 GM CAN TOP ONE (18:28)
[2020-03-21] MEDS ORDERED: HEPARIN SODIUM 100 U/ML 5 ML SYG IV ONE (19:15)
[2020-03-21 19:22] VITALS: O2SAT 100
--- NOTE | 2020-03-21 19:23 | ED.PDOC ---
History of Present Illness - General Chief Complaint: General Stated Complaint: significant weight loss since December Time Seen by Provider: 03/21/20 17:59 Source: patient, family Exam Limitations: clinical condition - History of Present Illness Initial Comments: The patient is a 69-year-old male presented to emergency room secondary to malnutrition and had loss of IV access for his IV antibiotics. The patient has numerous longstanding medical problems and is recently had pseudomonal pneumonia. The patient has had significant weight loss over the last couple of months. His primary care doctor sent up here from [facility] to have NG tube placed for nutritional reasons. Additionally his PICC line to the right upper extremity, through which she was getting meropenem has clotted off. It did that within the last 24 hours. Timing/Duration: 24 hours Severity: moderate Improving Factors: nothing Worsening Factors: nothing Allergies/Adverse Reactions: Allergies Codeine Allergy (Verified 03/21/20 18:22) Latex Allergy (Verified 03/21/20 18:22) Morphine Allergy (Verified 03/21/20 18:22) Home Medications: Ambulatory Orders BuPROPion XL [Wellbutrin XL] 150 mg PO DAILY 01/17/20 Diazepam [Valium] 10 mg PO BID 01/17/20 Docusate Sodium [Colace] 100 mg PO Q6HR 01/17/20 Finasteride 5 mg PO DAILY 01/17/20 HYDROcodone 10MG/APAP 325MG [[place] 10/325] 1 ea PO Q6H PRN 01/17/20 Hydroxychloroquine Sulfate [Plaquenil] 200 mg PO BID 01/17/20 Lisinopril 40 mg PO DAILY 01/17/20 Methadone HCl [Methadone] 10 mg PO Q6H PRN 01/17/20 Methylphenidate HCl [Ritalin] 20 mg PO BID 01/17/20 Apixaban [Eliquis] 5 mg PO BID 14 Days #28 tab 01/27/20 Azithromycin [Zithromax Z-Sher] 250 mg PO DAILY #4 tab 03/07/20 predniSONE 40 mg PO DAILY #10 tab 03/07/20 Albuterol Sulfate Nebs [Proventil Nebs] 2.5 mg INH QID PRN 03/09/20 B Complex W/ C [B Complex/Vitamin C] 1 cap PO DAILY 03/09/20 Cefepime [Maxipime] 2 gm IV BID 03/09/20 Dextromethorphan-Guaifenesin [Biocotron] 1 liq PO BID 03/09/20 Fluticasone Propionate (Nasal) [Fluticasone Propionate] 50 mcg INH DAILY 03/09/20 Lactobacillus [Acidophilus Lactobacilli] 1 cap PO QID 03/09/20 Megestrol Acetate 400 mg PO BID 03/09/20 Nutritional Supplements [Ismael] 1 pow PO BID 03/09/20 Review of Systems - Review of Systems Constitutional: States: malaise EENTM: States: no symptoms reported Respiratory: States: short of breath Cardiology: States: no symptoms reported Gastrointestinal/Abdominal: States: no symptoms reported Genitourinary: States: no symptoms reported Musculoskeletal: States: see HPI Skin: States: no symptoms reported Neurological: States: see HPI Endocrine: States: no symptoms reported All other Systems: No Change from Baseline Past Medical History (General) - Patient Medical History Hx Seizures: No Hx Stroke: No Hx Dementia: No Hx Asthma: No Hx of COPD: No Hx Cardiac Disorders: Yes - Arrithmia Hx Congestive Heart Failure: No Hx Pacemaker: No Hx Hypertension: Yes Hx Thyroid Disease: No Hx Diabetes: No Hx Gastroesophageal Reflux: No Hx Renal Disease: No Hx Cancer: No Hx of HIV: No Hx Hepatitis C: No Hx MRSA: No MRSA Source:: Skin - Vaccination History Hx Tetanus, Diphtheria Vaccination: Yes Hx Influenza Vaccination: No Hx Pneumococcal Vaccination: No - Social History Hx Tobacco Use: No Hx Chewing Tobacco Use: No Hx Alcohol Use: No Hx Substance Use: No Hx Substance Use Treatment: No Hx Depression: No Hx Physical Abuse: No Hx Emotional Abuse: No Hx Suspected Abuse: No - Activities of Daily Living Group Home/Assisted Living (if applicable):: [facility] Agency (if applicable):: None - Female History Patient is a Female of Child Bearing Age (10 -59 yrs old): No Patient : No Family Medical History - Family History Father Family History: Unknown Living Status: Unknown Mother Family History: Unknown Living Status: Physical Exam - Physical Exam General Appearance: Alert, Frail Eye Exam: bilateral normal Ears, Nose, Throat: hearing grossly normal, normal pharynx Neck: full range of motion Respiratory: no respiratory distress, no accessory muscle use Cardiovascular/Chest: no edema Peripheral Pulses: radial,right: 2+, radial,left: 2+ Gastrointestinal/Abdominal: non tender, soft Rectal Exam: deferred Neurologic: oriented x 3, other - Drowsy Skin Exam: pallor Comments: Vital Signs - 24 hr 03/21/20 03/21/20 03/21/20 17:59 18:00 19:00 Temperature 98.3 F 98.3 F Pulse Rate [ 111 H 111 H 109 H brachial] Respiratory 14 16 16 Rate Blood Pressure 110/74 131/88 [Left Arm] O2 Sat by Pulse 98 100 Oximetry Progress - Progress Progress: 03/21/20 19:22 The patient is a 69-year-old male presented emergency room secondary to need for NG tube placement. This was done with a 16 Spanish NG tube. Confirmation was obtained by x-ray. Cathflo was used to open the PICC line in the right upper extremity. It has been flushed with heparin. The patient will be sent back to the long-term care facility to resume his routine care. [email or web address] [phone] Departure - Departure Clinical Impression: Cachexia Occluded PICC line Qualifiers: Encounter type: initial encounter Qualified Code(s): T82.898A - Other specified complication of vascular prosthetic devices, implants and grafts, initial enc ounter Disposition: Discharge to SNF Condition: Poor Departure Forms: ED Discharge - Pt. Copy, Patient Portal Self Enrollment Instructions: Failure to Thrive, Adult Diet: regular diet Activity: increase activity as tolerated Referrals: MARCIE DECKER MD [Primary Care Provider] - 1-2 Weeks Home Medications: Ambulatory Orders BuPROPion XL [Wellbutrin XL] 150 mg PO DAILY 01/17/20 Diazepam [Valium] 10 mg PO BID 01/17/20 Docusate Sodium [Colace] 100 mg PO Q6HR 01/17/20 Finasteride 5 mg PO DAILY 01/17/20 HYDROcodone 10MG/APAP 325MG [[place] 10/325] 1 ea PO Q6H PRN 01/17/20 Hydroxychloroquine Sulfate [Plaquenil] 200 mg PO BID 01/17/20 Lisinopril 40 mg PO DAILY 01/17/20 Methadone HCl [Methadone] 10 mg PO Q6H PRN 01/17/20 Methylphenidate HCl [Ritalin] 20 mg PO BID 01/17/20 Apixaban [Eliquis] 5 mg PO BID 14 Days #28 tab 01/27/20 Azithromycin [Zithromax Z-Sher] 250 mg PO DAILY #4 tab 03/07/20 predniSONE 40 mg PO DAILY #10 tab 03/07/20 Albuterol Sulfate Nebs [Proventil Nebs] 2.5 mg INH QID PRN 03/09/20 B Complex W/ C [B Complex/Vitamin C] 1 cap PO DAILY 03/09/20 Cefepime [Maxipime] 2 gm IV BID 03/09/20 Dextromethorphan-Guaifenesin [Biocotron] 1 liq PO BID 03/09/20 Fluticasone Propionate (Nasal) [Fluticasone Propionate] 50 mcg INH DAILY 03/09/20 Lactobacillus [Acidophilus Lactobacilli] 1 cap PO QID 03/09/20 Megestrol Acetate 400 mg PO BID 03/09/20 Nutritional Supplements [Ismael] 1 pow PO BID 03/09/20 Additional Instructions: The patient is a 69-year-old male presented emergency room secondary to need for NG tube placement. This was done with a 16 Spanish NG tube. Confirmation was obtained by x-ray. Cathflo was used to open the PICC line in the right upper extremity. It has been flushed with heparin. The patient will be sent back to the long-term care facility to resume his routine care.
--- NOTE | 2020-03-21 19:37 | RAD ---
EXAM DESCRIPTION: Chest,1 View CLINICAL HISTORY:69 years Male, ng tube placement Comparison: Chest radiograph dated 03/20/2020 FINDINGS/IMPRESSION: Placement of nasogastric tube terminating subdiaphragmatically. Unchanged position of right upper extremity PICC. Chronic lung changes and bilateral interstitial opacities, unchanged No significant pleural effusion. No pneumothorax. Cardiomediastinal silhouette is unchanged. Bilateral shoulder arthroplasties. Electronically signed by: Alvin Mohr DO 03/21/2020 7:35 PM [employer] MANAGEMENT [employer]OCIATE
[2020-03-21 19:45] VITALS: BP 138/92
== END 2020-03-21 20:00 ==
LOC: ER 17:51
DX: T82.898A Other specified complication of vascular prosthetic devices, implants and grafts, initial encounter (principal); R64 Cachexia; E46 Unspecified protein-calorie malnutrition; I10 Essential (primary) hypertension; R06.02 Shortness of breath; Z79.01 Long term (current) use of anticoagulants; Z79.899 Other long term (current) drug therapy; Z88.5 Allergy status to narcotic agent; Z91.040 Latex allergy status; Z87.01 Personal history of pneumonia (recurrent)
CPT/HCPCS: 71045; J1642; J2997; J3010

== ENCOUNTER → 2020-03-25 | Outpatient (CLI) | payer MEDICARE, OTHER | LOC: GT 02:33 | PROVIDERS: ATTEND Family Medicine | DX: A41.9 Sepsis, unspecified organism (principal); E43 Unspecified severe protein-calorie malnutrition; J18.9 Pneumonia, unspecified organism; J96.00 Acute respiratory failure, unspecified whether with hypoxia or hypercapnia; M06.9 Rheumatoid arthritis, unspecified ==

== ENCOUNTER → 2020-03-30 | Outpatient (CLI) | payer MEDICARE, OTHER | LOC: GT 10:47 | PROVIDERS: ATTEND Family Medicine | DX: A41.9 Sepsis, unspecified organism (principal); E43 Unspecified severe protein-calorie malnutrition; J18.9 Pneumonia, unspecified organism; E87.1 Hypo-osmolality and hyponatremia ==

== ENCOUNTER → 2020-04-09 | Outpatient (CLI) | payer MEDICARE, OTHER | LOC: BFHH 16:15 | PROVIDERS: ATTEND Family Medicine | DX: R78.81 Bacteremia (principal); E86.0 Dehydration ==

== ENCOUNTER 2020-04-12 21:03 | Inpatient (IN) | payer MEDICARE, OTHER ==
[2020-04-12] MEDS ORDERED: IPRATROPIUM/ALBUTEROL 3 ML VIAL NEB ONE (21:10)
--- NOTE | 2020-04-12 21:37 | CT ---
EXAM: Head HISTORY: 69 years Male ams, hypoxia COMPARISON: None TECHNIQUE: Contiguous axial images of the head were obtained from the skull base through the vertex without IV contrast followed by multiplanar reformats. This exam was performed according to our departmental dose-optimization program, which includes automated exposure control, adjustment of the mA and/or kV according to patient size and/or use of iterative reconstruction technique. FINDINGS: Motion limited study. Brain volume is commensurate with patient age. No hydrocephalus. No midline shift, mass effect or abnormal extraaxial collection. No acute intracranial hemorrhage or infarct. White matter is within normal limits. Orbital contents are unremarkable. The paranasal sinuses and mastoid air cells are well pneumatized. No acute calvarial abnormality. IMPRESSION: Motion limited study. No discernible acute intracranial pathology. Electronically signed by: Salvador Wong MD 04/12/2020 9:35 PM [facility]
--- NOTE | 2020-04-12 21:41 | RAD ---
EXAM DESCRIPTION: Chest,1 View CLINICAL HISTORY: 69 years Male, ams, hypoxia, tachycardia COMPARISON: 03/21/2020 TECHNIQUE: Single AP chest radiograph. FINDINGS: Diffuse pulmonary opacities, marginally increased. PICC in unchanged position. Stable cardiomediastinal contour. Left costophrenic angle blunting. No pneumothorax. IMPRESSION: Diffuse pulmonary opacities, marginally increased. Electronically signed by: Salvador Wong MD 04/12/2020 9:40 PM [employer]PERATOR
[2020-04-12] MEDS ORDERED: METOPROLOL TARTRATE INJ 5 MG/5 ML VIAL IV ONE (21:48)
[2020-04-12] MEDS ORDERED: HYDROmorphone HCL INJ 2 MG/ML VIAL IV ONE ×2 (21:59→23:12)
[2020-04-12] MEDS ORDERED: HYDROmorphone HCL INJ 2 MG/ML VIAL ONE (22:01)
--- NOTE | 2020-04-12 22:51 | CT ---
EXAM: CT Angiography Chest With Intravenous Contrast CLINICAL HISTORY: The patient is 69 years old and is Male; hypoxia, elev ddimer TECHNIQUE: Axial computed tomographic angiography images of the chest with intravenous contrast. Sagittal and coronal reformatted images were created and reviewed. This CT exam was performed using one or more of the following dose reduction techniques: automated exposure control, adjustment of the mA and/or kV according to patient size, and/or use of iterative reconstruction technique. MIP reconstructed images were created and reviewed. COMPARISON: No relevant prior studies available. FINDINGS: PULMONARY ARTERIES: There are no obvious filling defects identified within the pulmonary arteries to suggest pulmonary embolism. AORTA: Atherosclerosis of the vasculature is present. No thoracic aortic aneurysm. LUNGS: The lungs are hyperinflated with fibrotic change specifically in the lower lobes. Bilateral emphysematous changes are also noted. Slight worsening in the scattered groundglass opacities and smooth interlobular thickening throughout the lungs is noted. PLEURAL SPACE: Development of small bilateral pleural effusions is noted. No pneumothorax. HEART: Unremarkable. No cardiomegaly. No significant pericardial effusion. No evidence of RV dysfunction. BONES/JOINTS: Mild multilevel degenerative change of the bones is noted. No acute fracture. No dislocation. SOFT TISSUES: Unremarkable. LYMPH NODES: Unremarkable. No enlarged lymph nodes. TUBES, LINES AND DEVICES: Right upper extremity PICC is present with the tip in the SVC. IMPRESSION: 1. No evidence of pulmonary embolism. 2. Slight worsening in the groundglass opacities superimposed on chronic lung changes. Findings suggest slight worsening infectious and/or edematous process. 3. Interval development of small bilateral pleural effusions. Electronically signed by: Carol Higgins MD 04/12/2020 10:49 PM [facility]
[2020-04-12] MEDS ORDERED: MEROPENEM 1 GM in SODIUM CHL 0.9% 50ML MIN-BAG+ 50 ML IVPB ONE (22:58)
[2020-04-12] MEDS ORDERED: methylPREDNISolone SODIUM SUC 125 MG/2 ML VIAL IV ONE (23:04)
[2020-04-12] MEDS ORDERED: SODIUM CHLORIDE 0.9% 1000ML 1,000 ML IVS ONE (23:04)
--- NOTE | 2020-04-12 23:16 | ED.PDOC ---
History of Present Illness - General Time Seen by Provider: 04/12/20 21:08 Source: EMS notes reviewed, family Exam Limitations: clinical condition - History of Present Illness Initial Comments: The patient is a 69-year-old male that went essentially unresponsive about an hour to an hour and a half prior to arrival of EMS. The patient has end-stage lung disease and does normally wear oxygen at 5 L. He had recently f inished undergoing a round of around a month of meropenem for pseudomonal pneumonia. The patient has severe vascular disease and does have some necrosis of his toes. Upon arrival by EMS oxygen saturations were down in the 60s. Nonrebreather was started and oxygen saturations were in the mid 80s upon arrival here. The patient would moan and he would move all extremities. He would not follow any commands. Source of the patient's deterioration is not entirely certain. Lungs were wet initially. Apparently the patient's white blood cell count less than a week ago was at 7000. The patient had talked with hospice before but had not officially signed up. The patient had been having problems with failure to thrive and did actually have a NG tube placed very briefly but could not tolerate it. Timing/Duration: 1-3 hours Severity: severe Allergies/Adverse Reactions: Allergies Codeine Allergy (Verified 03/21/20 18:22) Latex Allergy (Verified 03/21/20 18:22) Morphine Allergy (Verified 03/21/20 18:22) Home Medications: Ambulatory Orders BuPROPion XL [Wellbutrin XL] 150 mg PO DAILY 01/17/20 Diazepam [Valium] 10 mg PO BID 01/17/20 Docusate Sodium [Colace] 100 mg PO Q6HR 01/17/20 Finasteride 5 mg PO DAILY 01/17/20 HYDROcodone 10MG/APAP 325MG [Maurice 10/325] 1 ea PO Q6H PRN 01/17/20 Hydroxychloroquine Sulfate [Plaquenil] 200 mg PO BID 01/17/20 Lisinopril 40 mg PO DAILY 01/17/20 Methadone HCl [Methadone] 10 mg PO Q6H PRN 01/17/20 Methylphenidate HCl [Ritalin] 20 mg PO BID 01/17/20 Apixaban [Eliquis] 5 mg PO BID 14 Days #28 tab 01/27/20 Azithromycin [Zithromax Z-Sher] 250 mg PO DAILY #4 tab 03/07/20 predniSONE 40 mg PO DAILY #10 tab 03/07/20 Albuterol Sulfate Nebs [Proventil Nebs] 2.5 mg INH QID PRN 03/09/20 B Complex W/ C [B Complex/Vitamin C] 1 cap PO DAILY 03/09/20 Cefepime [Maxipime] 2 gm IV BID 03/09/20 Dextromethorphan-Guaifenesin [Biocotron] 1 liq PO BID 03/09/20 Fluticasone Propionate (Nasal) [Fluticasone Propionate] 50 mcg INH DAILY 03/09/20 Lactobacillus [Acidophilus Lactobacilli] 1 cap PO QID 03/09/20 Megestrol Acetate 400 mg PO BID 03/09/20 Nutritional Supplements [Ismael] 1 pow PO BID 03/09/20 Review of Systems - Review of Systems Review of Systems: 04/12/20 23:20 Patient unable to give review of systems. Unable to Obtain Due To: condition, clinical condition Past Medical History (General) - Patient Medical History Hx Seizures: No Hx Stroke: No Hx Dementia: No Hx Asthma: No Hx of COPD: Yes Hx Cardiac Disorders: Yes Hx Congestive Heart Failure: No Hx Pacemaker: No Hx Hypertension: Yes Hx Thyroid Disease: No Hx Diabetes: No Hx Gastroesophageal Reflux: No Hx Renal Disease: No Hx Cancer: No Hx of HIV: No Hx Hepatitis C: No Hx MRSA: No MRSA Source:: Skin - Vaccination History Hx Tetanus, Diphtheria Vaccination: Yes Hx Influenza Vaccination: No Hx Pneumococcal Vaccination: No - Social History Hx Tobacco Use: No Hx Chewing Tobacco Use: No Hx Alcohol Use: No Hx Substance Use: No Hx Substance Use Treatment: No Hx Depression: No Hx Physical Abuse: No Hx Emotional Abuse: No Hx Suspected Abuse: No - Female History Patient : No Family Medical History - Family History Father Family History: Unknown Living Status: Unknown Mother Family History: Unknown Living Status: Physical Exam - Physical Exam General Appearance: Lethargic, Obvious distress Eye Exam: bilateral other - Left upper gaze Ears, Nose, Throat: other - Poor dentition Neck: full range of motion Respiratory: respiratory distress, decreased breath sounds, accessory muscle use, rales, rhonchi, wheezing Cardiovascular/Chest: no edema, tachycardia - Sinus tachycardia at around 150 Peripheral Pulses: radial,right: 1+, radial,left: 1+, dorsalis pedis,right: 0, posterior tibialis,right: 0 Gastrointestinal/Abdominal: non tender, soft Rectal Exam: deferred Extremity: other - Left lower extremity [id number] amputation. Multiple necrotic toes. Obvious poor perfusion. He does move all extremities. Neurologic: other - The patient is drowsy but awake. He is unable to communicate. Gag reflex is strong. Skin Exam: pallor Comments: Vital Signs - 24 hr 04/12/20 04/12/20 04/12/20 21:03 21:10 22:03 Temperature 97.2 F L Pulse Rate 154 H Pulse Rate [ 154 H 135 H 149 H Left Radial] Respiratory 40 H 34 H 40 H Rate Blood Pressure 168/108 180/121 160/129 [Right Arm] O2 Sat by Pulse 94 L 90 L 95 Oximetry 04/12/20 04/12/20 22:12 23:03 Temperature Pulse Rate Pulse Rate [ 131 H 117 H Left Radial] Respiratory 36 H 22 Rate Blood Pressure 142/118 150/90 [Right Arm] O2 Sat by Pulse 97 100 Oximetry Progress - Progress Progress: 04/12/20 23:24 The patient is a 69-year-old male presents emergency room secondary to becoming unresponsive at home. This was most likely caused by worsening hypoxia from recurrent bacterial pneumonia. The patient had significant hypoxia for a prolonged period of time and has thus developed a non-ST elevation myocardial infarction and hypoxic encephalopathy. The patient is requiring a nonrebreather to maintain oxygen saturations. Mental status has not significantly improved over the past few hours. CTA of the chest failed to show other acute pathology. CT scan of the brain showed no focal acute pathology. Family has been informed of the findings. At this point in time they would like to proceed with comfort care for the patient. The patient will be continued on oxygen along with comfort care medications and then brought into the hospital tonight. [facility] is going to be contacted. This is per the and daughter's wishes. They do not wish antibiotics to be restarted or any medication started to target the heart. I believe the patient initially had significant pulmonary edema additionally upon arrival, which has largely resolved with reoxygenation. Admitting for continued care. Critical care time spent is 40 minutes excluding other billable procedures. randal rivas [phone] - Results/Orders Results/Orders: Chest x-ray shows chronic scarring in emphysematous changes along with small trace effusions. Head CT shows no acute changes though there are chronic changes present. CT angiogram of the chest shows no evidence of any pulmonary embolus or obvious acute pathology of the aorta. He does have trace effusions bilaterally. No cardiomegaly. Scarring is present. See report for details. Initial EKGs show sinus tachycardia at around 150 bpm. Sagola is normal. Simone rderline R wave progression. Mild J-point elevation in anterior leads that is not inconsistent with previous EKGs. No ST segment depression or T wave inversion. Normal QT interval. EKG was repeated several hours later with a heart rate slower at 110 bpm. J- point elevation is significantly less and consistent with previous EKG from earlier this month. I do not believe there is a ST elevation myocardial infarction in progress. Rapid Covid is negative. Rapid flu was negative. Laboratory Tests 04/12/20 04/12/20 04/12/20 21:17 21:17 21:17 WBC 26.3 H* RBC 4.64 L Hgb 11.5 L Hct 36.5 L MCV 78.6 L MCH 24.8 L MCHC 31.5 L RDW 22.6 H Plt Count 421 H MPV 7.8 Absolute Neuts (auto) Not Reportable Absolute Lymphs (auto) Not Reportable Absolute Monos (auto) Not Reportable Absolute Eos (auto) Not Reportable Neutrophils % Not Reportable Neutrophils % (Manual) 96.0 H Lymphocytes % Not Reportable Lymphocytes % (Manual) 2.0 Monocytes % Not Reportable Monocytes % (Manual) 2.0 Eosinophils % Not Reportable Basophils % Not Reportable Platelet Estimate Increased Normal RBC Morphology 1+microcytosis PT 12.4 H INR 1.25 H PTT (SP) 28.5 D-Dimer, Quantitative > 5000.0 H* Sodium 140 Potassium 4.0 Chloride 102 Carbon Dioxide 27 Anion Gap 15.0 BUN 18 Creatinine 0.45 L BUN/Creatinine Ratio 40.0 H Random Glucose 183 H Serum Osmolality 286.0 Lactic Acid Calcium 8.5 Magnesium 1.8 Total Bilirubin 0.5 AST 40 ALT 48 Alkaline Phosphatase 127 H Creatine Kinase 138 CK-MB (CK-2) 16.3 H* CK-MB (CK-2) % Not Reportable Troponin I 0.40 H* B-Natriuretic Peptide 351.0 H* Serum Total Protein 6.4 Albumin 2.6 L Globulin 3.8 H Albumin/Globulin Ratio 0.7 L Amylase 56 Lipase 21 L TSH 1.42 Urine Color Urine Appearance Urine pH Ur Specific [place] Urine Protein Urine Glucose (UA) Urine Ketones Urine Blood Urine Nitrite Urine Bilirubin Urine Urobilinogen Ur Leukocyte Esterase Urine RBC Urine WBC Ur Epithelial Cells Amorphous Sediment Urine Bacteria Ethyl Alcohol 04/12/20 04/12/20 04/12/20 21:17 21:17 23:00 WBC RBC Hgb Hct MCV MCH MCHC RDW Plt Count MPV Absolute Neuts (auto) Absolute Lymphs (auto) Absolute Monos (auto) Absolute Eos (auto) Neutrophils % Neutrophils % (Manual) Lymphocytes % Lymphocytes % (Manual) Monocytes % Monocytes % (Manual) Eosinophils % Basophils % Platelet Estimate Normal RBC Morphology PT INR PTT (SP) D-Dimer, Quantitative Sodium Potassium Chloride Carbon Dioxide Anion Gap BUN Creatinine BUN/Creatinine Ratio Random Glucose Serum Osmolality Lactic Acid 2.0 Calcium Magnesium Total Bilirubin AST ALT Alkaline Phosphatase Creatine Kinase CK-MB (CK-2) CK-MB (CK-2) % Troponin I B-Natriuretic Peptide Serum Total Protein Albumin Globulin Albumin/Globulin Ratio Amylase Lipase TSH Urine Color Yellow Urine Appearance Clear Urine pH 6.0 Ur Specific [place] >= 1.030 Urine Protein 30 Urine Glucose (UA) Negative Urine Ketones Negative Urine Blood Negative Urine Nitrite Negative Urine Bilirubin Negative Urine Urobilinogen 0.2 Ur Leukocyte Esterase Negative Urine RBC 0 Urine WBC 0-1 Ur Epithelial Cells 0 Amorphous Sediment Trace Urine Bacteria 0 Ethyl Alcohol < 5.10 Departure - Departure Clinical Impression: Recurrent bacterial pneumonia, Non-ST elevation myocardial infarction (NSTEMI), Hypoxic encephalopathy, Respiratory distress, acute Disposition: Admit Patient Condition: Poor Referrals: MARCIE DECEKR MD [Primary Care Provider] - 1-2 Weeks Home Medications: Ambulatory Orders BuPROPion XL [Wellbutrin XL] 150 mg PO DAILY 01/17/20 Diazepam [Valium] 10 mg PO BID 01/17/20 Docusate Sodium [Colace] 100 mg PO Q6HR 01/17/20 Finasteride 5 mg PO DAILY 01/17/20 HYDROcodone 10MG/APAP 325MG [Maurice 10/325] 1 ea PO Q6H PRN 01/17/20 Hydroxychloroquine Sulfate [Plaquenil] 200 mg PO BID 01/17/20 Lisinopril 40 mg PO DAILY 01/17/20 Methadone HCl [Methadone] 10 mg PO Q6H PRN 01/17/20 Methylphenidate HCl [Ritalin] 20 mg PO BID 01/17/20 Apixaban [Eliquis] 5 mg PO BID 14 Days #28 tab 01/27/20 Azithromycin [Zithromax Z-Sher] 250 mg PO DAILY #4 tab 03/07/20 predniSONE 40 mg PO DAILY #10 tab 03/07/20 Albuterol Sulfate Nebs [Proventil Nebs] 2.5 mg INH QID PRN 03/09/20 B Complex W/ C [B Complex/Vitamin C] 1 cap PO DAILY 03/09/20 Cefepime [Maxipime] 2 gm IV BID 03/09/20 Dextromethorphan-Guaifenesin [Biocotron] 1 liq PO BID 03/09/20 Fluticasone Propionate (Nasal) [Fluticasone Propionate] 50 mcg INH DAILY 03/09/20 Lactobacillus [Acidophilus Lactobacilli] 1 cap PO QID 03/09/20 Megestrol Acetate 400 mg PO BID 03/09/20 Nutritional Supplements [Ismael] 1 pow PO BID 03/09/20 Decision To Admit - Decistion To Admit Decision to Admit Reason: Medical Nature Decision to Admit Date: 04/12/20 Decision to Admit Time: 23:28
[2020-04-13] MEDS ORDERED: SODIUM CHLORIDE 0.9% (FLUSH) 10 ML SYG IV PRN (01:14)
[2020-04-13] MEDS ORDERED: ONDANSETRON INJ 4 MG/2 ML VIAL IV PRN (01:14)
[2020-04-13] MEDS ORDERED: HYDROmorphone HCL INJ 2 MG/ML VIAL IV PRN (01:18)
[2020-04-13] MEDS ORDERED: SCOPOLAMINE PATCH 1.5MG 1 EA TD SCH (01:30)
[2020-04-13] MEDS ORDERED: IV SET AND CAP CHANGE INJ INJ SCH (01:30)
[2020-04-13] MEDS ORDERED: SCOPOLAMINE PATCH 1.5MG 1 EA TD ONE (01:53)
[2020-04-13 05:20] VITALS: BP 110/78; TEMP 97.5; O2SAT 96
[2020-04-13] MEDS ORDERED: SODIUM CHLORIDE 0.9% (FLUSH) 10 ML SYG IV SCH (09:00)
--- NOTE | 2020-04-15 16:42 | SSS ---
SUPERVISING PHYSICIAN: Young Caldwell MD CHIEF COMPLAINT: HISTORY OF PRESENT ILLNESS: Mr. Hagen is a 69 year-old male patient who came to the Emergency Room unresponsive about an hour and a half prior to arrival by EMS. He does have a history of endstage lung cancer and normally wears up to 5 liters of oxygen at home. He just recently finished around a month's worth of meropenem for a pseudomonas infection that included pneumonia. On arrival by EMS, his oxygen saturation was noted to be in the 60s and he was started on a nonrebreather and saturations were up in the mid 80s when he arrived in the Emergency Room. He was only moaning and moved his extremities but would not follow commands. A workup showed he had a significant leukocytosis of 26,300 with a left shift. His chemistries showed his troponin was at 0.4, electrolytes were within normal limits. Creatinine 0.45. 12-lead EKG showed sinus tachycardia at 150. He was given a beta joao after his heart rate slowed to 110, I new EKG was completed with no obvious ST elevations noted. His vital sins in the Emergency Room showed an initial heart rate of 154, blood pressure 168/108, respirations 40 and oxygen saturation 87% on nasal cannula, 90% on nonrebreather. He also had a CT of the head and per radiology interpretation showed no acute findings, limited by motion. His was at the bedside as was his daughter. Given the severity of his symptoms and concerns for a non-STEMI along with severe sepsis due to pneumonia and the fact that he has endstage chronic obstructive pulmonary disease, both the and daughter opted to now allow any antibiotics to be started or any resuscitation efforts and put the patient on hospice as soon as possible. He is going to be admitted to the medical/surgical floor for care and comfort, awaiting hospice consultation. The patient was in critical condition at the time of admission. PAST MEDICAL HISTORY: Obtained from previous records as the patient was unresponsive. 1. Hypertension. 2. Chronic rheumatoid syndrome. 3. Rheumatoid arthritis. 4. Endstage chronic obstructive pulmonary disease. PAST SURGICAL HISTORY: 1. Back surgeries. 2. Knee surgeries. CURRENT MEDICATIONS: Please see the updated list in medical records for list of medications. ALLERGIES: Codeine, Lasix, morphine. FAMILY HISTORY: Reviewed and noncontributory. SOCIAL HISTORY: Currently a nonsmoker, does not use illicit and drinks an occasional beer. REVIEW OF SYSTEMS: Unable to obtain due to patient's current unresponsiveness and critical condition. PHYSICAL EXAMINATION: VITAL SIGNS: Temperature 97.2, pulse 154, respiratory rate 40, blood pressure 168/108, oxygen saturation 90% on a nonrebreather. GENERAL: Patient is lethargic but looked to be resting comfortably after giving Ativan and Dilaudid. HEENT: Bilateral left upper gaze noted for contention. NECK: No jugular venous distention noted. CHEST: Lung sounds diminished throughout with notable rales and rhonchi with wheezing heard throughout in all lung sorensen. CARDIOVASCULAR: Noted sinus tachycardia around 150 on monitor, no obvious murmurs, rubs, or gallops. ABDOMEN: Soft, non-tender. EXTREMITIES: He had an above-knee amputation on the left. Multiple necrotic toes but he is moving all extremities. NEUROLOGIC: The patient does not communicate, he is lethargic, does respond to pain. SKIN: Pale, mottled. RECTAL: Deferred. LABORATORY: White count 26,300, hemoglobin 11.5, hematocrit 30.5, platelet count 421,000, differential does show a left shift. Coagulation studies showed greater than 5,000 D-dimer. Chemistries showed normal electrolytes, creatinine 0.4, lactic acid 2.0, bilirubin 0.5, liver functions within normal limits. Troponin 0.4. BNP 351, lipase 21, TSH 1.42. Urinalysis was unremarkable. Toxicology screen: alcohol less than 5.1. MICROBIOLOGY: Covid and influenza swabs were negative. He had 2 sets of blood cultures that were completed in the Emergency Room. RADIOLOGY: CT of the head without any acute findings. Initial chest x-ray, single view, per radiology interpretation showed diffuse opacities marginally increased from previous on 03/21/20. He also had a chest CTA and per radiology interpretation showed no evidence of pulmonary embolism but there was slight worsening groundglass opacities superimposed on chronic lung changes. Interval development of small bilateral pleural effusions. 12-lead EKG showed a sinus tachycardia at [address] elevations. HOSPITAL COURSE: Mr. Hagen was admitted early on the morning of 04/12/20 for care and comfort measures after the family chose to not do any heroic efforts. He was taken to the Floor, given Ativan and Dilaudid and kept comfortable. He did shortly after admission to the Floor. ASSESSMENT: 1. Cardiopulmonary arrest with the patient being a DNR. 2. Endstage chronic obstructive pulmonary disease. 3. Chronic illness on admission in history and physical. PLAN: Mr. Hagen was brought from the Emergency Room to the Floor for care and comfort measures at the request of his family. His was at the bedside. He got Ativan and Dilaudid. A consultation with hospice was requested, however, they were unable to make the consultation due to the patient expiring shortly after he got to the Floor. The patient's body was taken to the home of choice and his primary care physician was noted of patient's expiration. DISPOSITION: The patient , body was taken to the home. #[id number] MTDD
== END 2020-04-13 04:55 | disposition expired | DRG 297 ==
LOC: ER 21:03 → MS 04-13 00:17 → OBSVTOIN 04-13 00:17
PROVIDERS: ADMIT Nurse Practitioner Family; ATTEND Nurse Practitioner Family
PROC: B32T1ZZ Computerized Tomography (CT Scan) of Left Pulmonary Artery using Low Osmolar Contrast (ICD-10-PCS; principal; 2020-04-12)
PROC: B32S1ZZ Computerized Tomography (CT Scan) of Right Pulmonary Artery using Low Osmolar Contrast (ICD-10-PCS; 2020-04-12)
DX: I46.9 Cardiac arrest, cause unspecified (principal); C34.90 Malignant neoplasm of unspecified part of unspecified bronchus or lung; I10 Essential (primary) hypertension; M06.9 Rheumatoid arthritis, unspecified; J44.9 Chronic obstructive pulmonary disease, unspecified; Z66 Do not resuscitate; Z51.5 Encounter for palliative care; Z99.81 Dependence on supplemental oxygen; Z88.5 Allergy status to narcotic agent; Z88.8 Allergy status to other drugs, medicaments and biological substances; Z89.612 Acquired absence of left leg above knee